=== PATIENT | female | born 1940 | race Two or more races ===

== ENCOUNTER 2025-03-03 01:41 | Inpatient (IN) | payer MEDICARE, MEDICAID ==
[~2025-03-03] VITALS: Ht 152.4 cm; Wt 58.6 kg
--- NOTE | 2025-03-03 02:44 | ED.PDOC ---
Altered Mental Status HPI Comments 84-year-old female who came to the ER via EMS for altered level of consciousness/shortness of breath. Patient does have history of hypertension, diabetes, CVA and dementia. Noted by family members that patient has been acting more altered than usual. Was noted that whenever patient is in supine position, patient appears to be short of breath, despite saturating 99% on room air and she is supine. 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 Allergies: Coded Allergies: NO KNOWN ALLERGIES (Unverified , 03/03/25) Information Source: Emergency Med Personnel Mode of Arrival: EMS Severity: Unable to Care for Self Timing: Hours Prehospital treatment: None Quality: Decreased Alertness, Change in Behavior History of: Dementia Past Medical History PAST MEDICAL HISTORY: CVA, Dementia, DM, High Lipids, HTN Surgical History: Pt Confused HYDROMETEOROLOGIST History: Denies all HYDROMETEOROLOGIST Hx, Pt Confused Family History Family History: Pt Confused Social History Smoker: Pt Confused Alcohol: Pt Confused Drugs: Pt Confused Lives In: Home Unable to Obtain due to: Altered Mental Status Physical Exam General Appearance: No Apparent Distress, Normal HEENT: Normal ENT Inspection, Pharynx Normal, TMs Normal Neck: Full Range of Motion, Non-Tender, Normal, Normal Inspection Respiratory: Chest Non-Tender, Lungs Clear, No Accessory Muscle Use, No Respiratory Distress, Normal Breath Sounds Cardiovascular: No Edema, No JVD, No Murmur, No Gallop, Normal Peripheral Pulses, Regular Rate/Rhythm Breast Exam: Deferred Gastrointestinal: No Organomegaly, Non Tender, No Pulsatile Mass, Normal Bowel Sounds, Soft Genitalia: Deferred Pelvic: Deferred Rectal: Deferred Extremities: No calf tenderness, Normal capillary refill, Normal inspection, Normal range of motion, Non-tender, No pedal edema Musculoskeletal : Apperance: Normal Neurologic: Alert, sales office coordinator II-XII nml as Tested, No Motor Deficits, Normal Affect, Normal Mood, No Sensory Deficits Cerebellar Function: Normal Reflexes: Normal Skin: Dry, Normal Color, Warm Lymphatic: No Adenopathy Was a procedure done? Was a procedure done?: No Differential Diagnosis (ALOC) Differential Diagnosis: Encephalopathy, Hypoxemia, Heart Failure, Renal Failure X-Ray, Labs, Meds, VS Vital Signs Date Time Temp Pulse Resp B/P (MAP) Pulse Ox O2 Delivery O2 Flow Rate FiO2 03/03/25 01:41 98.8 84 16 147/62 100 98.8 Lab Test 03/03/25 03:25 03/03/25 02:32 Range/Units Troponin I High Sensitivity Pending 4 </=34 ng/L White Blood Count 6.3 4.4-10.8 10^3/uL Red Blood Count 4.76 4.0-5.20 10^6/uL Hemoglobin 13.3 12.2-16.2 g/dL Hematocrit 39.9 36.0-46.0 % Mean Corpuscular Volume 83.8 80.0-100.0 fL Mean Corpuscular Hemoglobin 27.9 L 28.0-32.0 pg Mean Corpuscular Hemoglobin Concent 33.3 32.0-36.0 g/dL Red Cell Distribution Width 13.4 11.8-14.3 % Platelet Count 210 140-450 10^3/uL Mean Platelet Volume 8.6 6.9-10.8 fL Neutrophils (%) (Auto) 52.5 37.0-80.0 % Lymphocytes (%) (Auto) 37.0 10.0-50.0 % Monocytes (%) (Auto) 6.6 0.0-12.0 % Eosinophils (%) (Auto) 2.8 0.0-7.0 % Basophils (%) (Auto) 1.1 0.0-2.0 % Neutrophils # (Auto) 3.3 1.6-8.6 10 ^3/uL Lymphocytes # (Auto) 2.3 0.4-5.4 10 ^3/uL Monocytes # (Auto) 0.4 0-1.3 10 ^3/uL Eosinophils # (Auto) 0.2 0-0.8 10 ^3/uL Basophils # (Auto) 0.1 0-0.2 10 ^3/uL Nucleated Red Blood Cells 0.0 % Sodium Level 141 136-145 mmol/L Potassium Level 3.4 L 3.5-5.1 mmol/L Chloride Level 107 98-107 mmol/L Carbon Dioxide Level 20 20-31 mmol/L Anion Gap 14 5-15 Blood Urea Nitrogen 8 L 9-23 mg/dL Creatinine 0.74 0.550-1.02 mg/dL Glomerular Filtration Rate Calc 80 >90 mL/min BUN/Creatinine Ratio 10.8 10.0-20.0 Serum Glucose 156 H 74-106 mg/dL Lactic Acid Level 1.3 0.4-2.0 mmol/L Calcium Level 9.4 8.7-10.4 mg/dL Magnesium Level 1.8 1.6-2.6 mg/dL Total Bilirubin 0.9 0.2-1.0 mg/dL Aspartate Amino Transferase (AST) 17 13-40 U/L Alanine Aminotransferase (ALT) 12 7-40 U/L Alkaline Phosphatase 83 46-116 U/L B-Type Natriuretic Peptide 53.73 0-100 pg/mL Total Protein 7.8 5.7-8.2 g/dL Albumin 4.0 3.2-4.8 g/dL CHEST RADIOGRAPH Indication: SOB Technique: Single frontal view of the chest was obtained COMPARISON: None FINDINGS: Lines and Tubes: None Lungs: Clear Pleura: No effusion. No pneumothorax. Cardiomediastinal contours: Unremarkable Bones: Unremarkable IMPRESSION: 1. No acute disease. Time of 1ST Reevaluation: 02:39 Reevaluation 1ST: Unchanged Patient Education/Counseling: Pt Unresponsive Family Education/Counseling: No Family Present SEPSIS Sepsis Screen Physician Orders Chest Portable (03/03/25 02:12) Electrocardigram (03/03/25 02:12) Troponin-I Hs (03/03/25 03:12) Troponin-I Hs (03/03/25 05:12) Blood Culture (03/03/25 02:12) Vital Signs Date Time Temp Pulse Resp B/P (MAP) Pulse Ox O2 Delivery O2 Flow Rate FiO2 03/03/25 01:41 98.8 84 16 147/62 100 98.8 Laboratory Tests Test 03/03/25 02:32 Lactic Acid Level 1.3 mmol/L (0.4-2.0) White Blood Count 6.3 10^3/uL (4.4-10.8) Departure 1 Departure Time of Disposition: 04:06 Impression: Primary Impression: Dementia Additional Impression: Acute coronary syndrome Disposition: 09 ADMITTED INPATIENT Admit to: Tele Condition: Guarded Comments 84-year-old female with a history of dementia now with chest discomfort and sh ortness of breath. Initial cardiac workup looks okay but patient has significant risk factors. Patient was given an aspirin. Patient will need admission for supportive care and further workup. Critical Care Note Critical Care Time?: No Stability Stability form required: No Heart Score Heart Score: Heart Score Response (Comments) Value History N/A 0 EKG N/A 0 Age N/A 0 Risk Factors N/A 0 Troponin N/A 0 Total 0 I personally scribed for PRASANNA RICH MD ([email or web address]) on 03/03/25 at 02:44. El ectronically submitted by Atilio Viera ([facility]). I personally scribed for PRASANNA RICH MD ([email or web address]) on 03/03/25 at 03:02. Electronically submitted by Atilio Viera ([facility]). PRASANNA RICH MD Mar 03, 2025 02:44
[2025-03-03 02:46] LABS: Hematocrit 39.9 % (36.0-46.0); Hemoglobin 13.3 g/dL (12.2-16.2); Mean Corpuscular Hemoglobin 27.9 pg (28.0-32.0); Mean Corpuscular Volume 83.8 fL (80.0-100.0); Nucleated Red Blood Cells % 0.0 %
--- NOTE | 2025-03-03 02:50 | DVH ---
CHEST RADIOGRAPH Indication: SOB Technique: Single frontal view of the chest was obtained COMPARISON: None FINDINGS: Lines and Tubes: None Lungs: Clear Pleura: No effusion. No pneumothorax. Cardiomediastinal contours: Unremarkable Bones: Unremarkable IMPRESSION: 1. No acute disease.
[2025-03-03 03:11] LABS: Alanine Aminotransferase 12 U/L (7-40); Alkaline Phosphatase 83 U/L (46-116); Anion Gap 14 (5-15); BUN/Creatinine Ratio 10.8 (10.0-20.0); Calcium 9.4 mg/dL (8.7-10.4); Chloride 107 mmol/L (98-107); Magnesium 1.8 mg/dL (1.6-2.6); Sodium 141 mmol/L (136-145); Total Protein 7.8 g/dL (5.7-8.2)
[2025-03-03 03:12] LABS: Albumin 4.0 g/dL (3.2-4.8); Bilirubin, Total 0.9 mg/dL (0.2-1.0)
[2025-03-03 03:26] LABS: Blood Urea Nitrogen 8 mg/dL (9-23); Carbon Dioxide 20 mmol/L (20-31); Glucose 156 mg/dL (74-106); Potassium 3.4 mmol/L (3.5-5.1)
--- NOTE | 2025-03-03 04:42 | DVHHPRES ---
History of Present Illness Resident Creating Document: MARIBETH SULLIVAN RESIDENT History of Present Illness Diana Mane is a 84-year-old female patient who presents to ED brought by EMS due to altered mental status and difficulty breathing per granddaughter. Patient has history of dementia, obtained past medical history and history of presenrt illness from granddaughter who is at bedside. 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 Patient's symptoms persisted and worsened after her discharge at home, prompting family to call EMS and bring her to the hospital once again. Due to clinical status could not obtain review of systems. 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 Peptic ulcer disease. Surgical history: Cervical surgery Family history: Noncontributory Social history: Lives in [place] with family (next of kin is daughter and granddaughter). Denies current tobacco, alcohol and other drug abuse Allergies: Penicillin Home medication: [id number] mg p.o. daily, atorvastatin 80 mg p.o. daily, [id number] mg p.o. daily, glucagon1 mg SC prn, insulin glargine 14 units, insulin lispro 9 units, losartan hydrochlorothiazide 50-12.5 mg p.o. daily, metformin a 1000 mg p.o. b.i.d., Patient seen and examined at bedside. Currently has no new complaints. Patient will be admitted for further evaluation. Past Medical History Per HPI Past Surgical History Per HPI Family History Per HPI Past Social History Per HPI Review of Systems Review of Systems Per HPI Allergies: Coded Allergies: NO KNOWN ALLERGIES (Unverified , 03/03/25) Exam Vital Signs Vital Signs Date Time Temp Pulse Resp B/P (MAP) Pulse Ox O2 Delivery O2 Flow Rate FiO2 03/03/25 01:41 98.8 84 16 147/62 100 98.8 Exam Patient lying in bed, in no acute distress General: Campos, afebrile, mucosae are moist Cardiovascular: Normal S1 and S2. No murmurs, gallops or rubs Respiratory: Normal ventilation mechanics. Clear lung sounds on auscultation Abdomen: Soft, diffuse tenderness on superficial palpation, Colón's sign positive, suprapubic tenderness, no organomegaly, normal bowel sounds MSK/skin: Mobilizes 4 limbs. Skin is dry and warm Neurological: Oriented in 2 spheres (not in time). Left-sided hemiplegia (facial/brachial/crural), no other motor no sensitive deficits. Pupils are isocoric and reactive Labs/Xrays Labs Test 03/03/25 03:25 03/03/25 02:32 Range/Units Troponin I High Sensitivity 4 </=34 ng/L White Blood Count 6.3 4.4-10.8 10^3/uL Red Blood Count 4.76 4.0-5.20 10^6/uL Hemoglobin 13.3 12.2-16.2 g/dL Hematocrit 39.9 36.0-46.0 % Mean Corpuscular Volume 83.8 80.0-100.0 fL Mean Corpuscular Hemoglobin 27.9 L 28.0-32.0 pg Mean Corpuscular Hemoglobin Concent 33.3 32.0-36.0 g/dL Red Cell Distribution Width 13.4 11.8-14.3 % Platelet Count 210 140-450 10^3/uL Mean Platelet Volume 8.6 6.9-10.8 fL Neutrophils (%) (Auto) 52.5 37.0-80.0 % Lymphocytes (%) (Auto) 37.0 10.0-50.0 % Monocytes (%) (Auto) 6.6 0.0-12.0 % Eosinophils (%) (Auto) 2.8 0.0-7.0 % Basophils (%) (Auto) 1.1 0.0-2.0 % Neutrophils # (Auto) 3.3 1.6-8.6 10 ^3/uL Lymphocytes # (Auto) 2.3 0.4-5.4 10 ^3/uL Monocytes # (Auto) 0.4 0-1.3 10 ^3/uL Eosinophils # (Auto) 0.2 0-0.8 10 ^3/uL Basophils # (Auto) 0.1 0-0.2 10 ^3/uL Nucleated Red Blood Cells 0.0 % Sodium Level 141 136-145 mmol/L Potassium Level 3.4 L 3.5-5.1 mmol/L Chloride Level 107 98-107 mmol/L Carbon Dioxide Level 20 20-31 mmol/L Anion Gap 14 5-15 Blood Urea Nitrogen 8 L 9-23 mg/dL Creatinine 0.74 0.550-1.02 mg/dL Glomerular Filtration Rate Calc 80 >90 mL/min BUN/Creatinine Ratio 10.8 10.0-20.0 Serum Glucose 156 H 74-106 mg/dL Lactic Acid Level 1.3 0.4-2.0 mmol/L Calcium Level 9.4 8.7-10.4 mg/dL Magnesium Level 1.8 1.6-2.6 mg/dL Total Bilirubin 0.9 0.2-1.0 mg/dL Aspartate Amino Transferase (AST) 17 13-40 U/L Alanine Aminotransferase (ALT) 12 7-40 U/L Alkaline Phosphatase 83 46-116 U/L B-Type Natriuretic Peptide 53.73 0-100 pg/mL Total Protein 7.8 5.7-8.2 g/dL Albumin 4.0 3.2-4.8 g/dL SEPSIS Sepsis Screen Date sepsis recognized/suspect: Mar 03, 2025 Time Sepsis recognized/suspect: 0141 Recent Procedure: No On Antibiotic Therapy: No Respiratory Rate >20: No Heart Rate >90: No Temp<36 C (96.8 F) or >38.3 C: No SBP <90 or MAP <65 mmHG: No New Acute Mental Status Change: No Is the patient on CPAP, BIPAP,: No Physician Orders Chest Portable (03/03/25 02:12) Electrocardigram (03/03/25 02:12) Troponin-I Hs (03/03/25 05:12) Blood Culture (03/03/25 02:12) Admit (03/03/25 04:34) Code Status (03/03/25 04:34) Acetaminophen Tablet (Tylenol Tablet) (03/03/25 04:45) Npo (Nothing By Mouth) Diet (03/03/25 Breakfast) Echo 2d Mode Cardiac Dop (03/03/25 04:34) Lovenox 30mg (03/03/25 10:00) Morphine Sulfate Injection (03/03/25 04:45) Oxygen By Nasal Cannula (03/03/25 04:34) Stat Ekg For Chest Pain (03/03/25 04:34) Notify Of Changes From Base (03/03/25 04:34) Machine Load Clerk For 24 Hours (03/03/25 04:34) Emergency Dysrhythmia Protocol (03/03/25 04:34) Rhythm Strips Once Every Shift (03/03/25 04:34) Nitroglycerin Sublingual (Ntrostat Subli (03/03/25 04:45) Potassium Chl Bartolome Kcl (03/03/25 04:45) Magnesium Bartolome (03/03/25 04:45) Vitamin D, 25-Hydroxy (03/03/25 04:34) Vitamin B12 (03/03/25 04:34) Urinalysis (03/03/25 04:34) Thyroid Stimulating Hormone (03/03/25 04:34) Phosphorus (03/03/25 04:34) PTPTT (03/03/25 04:34) Lipid Panel (03/03/25 04:34) Hemoglobin A1c (03/03/25 04:34) Drug Screen (03/03/25 04:34) Complete Blood Count (03/03/25 04:34) Basic Metabolic Panel (03/03/25 04:34) Aspirin Tablet (03/03/25 10:00) Atorvastatin (Lipitor) (03/03/25 22:00) Urine Bacterial Culture (03/03/25 04:34) Head Without Contrast (03/03/25 04:34) Vital Signs Date Time Temp Pulse Resp B/P (MAP) Pulse Ox O2 Delivery O2 Flow Rate FiO2 03/03/25 01:41 98.8 84 16 147/62 100 98.8 Laboratory Tests Test 03/03/25 02:32 Lactic Acid Level 1.3 mmol/L (0.4-2.0) White Blood Count 6.3 10^3/uL (4.4-10.8) Assessment/Plan Assessment/Plan ASSESSMENT Metabolic encephalopathy secondary to sepsis Sepsis probably secondary to UTI Rule out dilated common bile duct Hypokalemia Diabetes Dyslipidemia Hypertension Dementia Peptic ulcer disease PLAN Patient will be admitted to telemetry. Ordered head, and abdomen and pelvis CT Continue home medication including aspirin, clopidogrel and atorvastatin. Currently on insulin sliding scale Indicated pantoprazole due to history of peptic ulcerative disease Keeping patient NPO Ordered swallow evaluation Ordered Vides catheter placement, obtain urine analysis Currently under empiric IV antibiotic (meropenem) Ordered radford cultures Goals of care discussed with granddaughter for over 18 minutes: Full code status Discussed plan with Dr. Granados, family (granddaughter) and nurses: Patient will be admitted due to metabolic encephalopathy probably secondary to UTI. Ordered pancultures, imaging (head and abdomen/pelvis CT). Patient has poor prognosis Plan discussed with: Patient, Other (Granddaughter and nurses) My Orders Orders - MARIBETH SULLIVAN RESIDENT Procedure Category Date Status Time Admit ADMIT 03/03/25 Transmitted 04:34 Code Status CODE 03/03/25 Transmitted 04:34 Acetaminophen Tablet PHA 03/03/25 Transmitted (Tylenol Tablet) 04:45 Npo (Nothing By DIET 03/03/25 Transmitted Mouth) Diet Breakfast Echo 2d Mode Cardiac US 03/03/25 Transmitted DOP 04:34 Lovenox 30mg PHA 03/03/25 Transmitted 10:00 Morphine Sulfate PHA 03/03/25 Transmitted Injection 04:45 Oxygen By Nasal RT 03/03/25 Transmitted Cannula 04:34 Stat Ekg For Chest [facility] 03/03/25 Transmitted Pain 04:34 Notify Md Of Changes [facility] 03/03/25 Transmitted From Base 04:34 Machine Load Clerk For [facility] 03/03/25 Transmitted 24 Hours 04:34 Emergency Dysrhythmia [facility] 03/03/25 Transmitted Protocol 04:34 Rhythm Strips Once [facility] 03/03/25 Transmitted Every Shift 04:34 Nitroglycerin PHA 03/03/25 Transmitted Sublingual (Ntrostat 04:45 Potassium Chl Bartolome PHA 03/03/25 Transmitted KCL 04:45 Magnesium Bartolome PHA 03/03/25 Transmitted 04:45 Vitamin D, 25-Hydroxy LAB 03/03/25 Transmitted 04:34 Vitamin B12 LAB 03/03/25 Transmitted 04:34 Urinalysis LAB 03/03/25 Transmitted 04:34 Thyroid Stimulating LAB 03/03/25 Transmitted Hormone 04:34 Phosphorus LAB 03/03/25 Transmitted 04:34 PTPTT LAB 03/03/25 Verified 04:34 Lipid Panel LAB 03/03/25 Verified 04:34 Hemoglobin A1c LAB 03/03/25 Verified 04:34 Drug Screen LAB 03/03/25 Verified 04:34 Complete Blood Count LAB 03/03/25 Verified 04:34 Basic Metabolic Panel LAB 03/03/25 Verified 04:34 Aspirin Tablet PHA 03/03/25 Verified 10:00 Atorvastatin (Lipitor) PHA 03/03/25 Verified 22:00 Urine Bacterial CHRISTINE 03/03/25 Transmitted Culture 04:[address] 03/03/25 Transmitted 04:34 Date of Service: Mar 03, 2025 Billing Provider: JASON GRANADOS MD Common Visit Codes: [id number] INP/OBS CARE (HIGH) Secondary Visit Codes: [id number] CARE PLAN 30 MINUTES MARIBETH SULLIVAN RESIDENT Mar 03, 2025 04:42
[2025-03-03] MEDS ORDERED: NITROGLYCERIN 0.4 MG SL TAB SL PRN (04:45)
[2025-03-03] MEDS ORDERED: MORPHINE SULFATE INJ 2 MG/ml SYRG IV PRN (04:45)
[2025-03-03] MEDS ORDERED: DEXTROSE (50%) 50ML SYRG IV PRN (05:15)
[2025-03-03 05:16] LABS: INR 1.03 (0.9-1.15); Partial Thromboplastin Time 28.4 SEC (24.5-34.5); Prothrombin Time 10.9 sec (9.3-11.8)
[2025-03-03] MEDS: MAGNESIUM SULFATE 1GM/100ML 100 ML IV SCH (05:45)
[2025-03-03] MEDS ORDERED: MEROPENEM 1GM IVPB 50 ML IV SCH (06:00)
--- NOTE | 2025-03-03 06:09 | DVH ---
EXAM: CT HEAD WITHOUT CONTRAST INDICATION: Metabolic encephalopathy TECHNIQUE: CT of the head without intravenous contrast. Radiation Dose Information: CT Dose: CTDI volume is 59.09 mGy. Dose-length product is 1.71 mGy*cm The dose indicators for CT are the volume Computed Tomography (CT) Dose Index (CTDIvol) and the Dose Length Product (DLP), and are measured in units of mGy and mGy-cm, respectively. These indicators are not patient dose, but values generated from the CT scanner acquisition factors. The report includes radiation exposure data for exposures received during this examination. COMPARISON: None FINDINGS: Evaluation of the posterior fossa is limited due to postsurgical changes. Coarse calcification in the left caudate. No evidence of intracranial hemorrhage or midline shift. There is hypodensity in the r ight parietotemporal lobe and right parietal lobe which may represent prior infarction. No evidence o f hydrocephalus. Mild cortical atrophy. IMPRESSION: 1. No acute intracranial process. 2. Hypodensity in the right parietotemporal lobe and right parietal lobe which may represent prior in farction, however there are no comparisons and given clinical history, consideration to other etiolog ies is given. MRI with contrast would be of benefit if there is no previous history of stroke.
--- NOTE | 2025-03-03 06:21 | DVH ---
Exam: CT CT AB PEL WO CON-NO ORAL OR IV History: Rule out dilated common bile duct Comparison Study: None TECHNIQUE: Multidetector CT of the abdomen and pelvis was performed from lung bases to pubic symphysi s. Imaging was performed without IV contrast. Axial, coronal and sagittal multiplanar reformats were obtained from the axial data set by the technologist. Radiation optimization: All CT scans at this facility use at least one of these dose optimization lora hniques: automated exposure control mA and/or kV adjustment per patient size (includes targeted exam s where dose is matched to clinical indication) or iterative reconstruction. Radiation Dose Information: CT Dose: CTDI volume is 11.07 mGy. Dose-length product is 3.92 mGy*cm FINDINGS: Evaluation of solid organs is limited due to lack of intravenous contrast use. Imaged portions of the lung bases demonstrate coarsened interstitial markings dependent changes. The re are coronary artery calcifications. Examination is limited by motion and lack of intravenous contrast. There is moderate pneumobilia. The common bile duct estimates 1.3 cm. A normal appearing gallbladder is not identified. There is possib le mass or duodenal diverticulum adjacent to the 2nd portion of the duodenum there is gas within the pancreatic duct. The pancreas spleen and adrenal glands appear otherwise unremarkable. The kidneys ap pear symmetric without hydronephrosis. There is no evidence of bowel obstruction or focal bowel wall thickening. There is a fat containing u mbilical hernia. The urinary bladder wall appears mildly thickened, likely due to incomplete distenti on. No suspicious osseous lesion. IMPRESSION: 1. Moderate pneumobilia with dilated common bile duct. Correlation with history of previous surgery o r ambulatory is recommended 2. Possible mass or duodenal diverticulum adjacent to the 2nd portion of the duodenum. CT or MRI with contrast pancreatic protocol is recommended.
[2025-03-03 06:56] LABS: Triglycerides 130.0 mg/dL (< 150)
[2025-03-03 06:58] LABS: Cholesterol 108.0 mg/dL (< 200)
[2025-03-03 07:38] LABS: HDL Cholesterol 38.0 mg/dL (40-59)
[2025-03-03] MEDS: InsuLIN REG 1unit/0.01ml Soln (100units/ml) SC SCH (08:55)
[2025-03-03] MEDS: ACCU-CHEK COMFORT CURVE STRIP VI SCH (08:56)
[2025-03-03] MEDS: MEROPENEM 1GM IVPB 50 ML IV SCH (09:06)
[2025-03-03] MEDS: POTASSIUM CHL 20MEQ/100ML 100 ML IV SCH (09:42)
[2025-03-03 09:46] LABS: COVID19 ANTIGEN SOFIA FIA NEGATIVE (NEGATIVE)
[2025-03-03] MEDS: SODIUM CHLORIDE 0.9% 1,000 ML IV SCH (10:00)
[2025-03-03] MEDS: HALOPERIDOL LACTATE 5 MG/ML INJ VIAL IV PRN (10:05)
[2025-03-03] MEDS: ENOXAPARIN SOD 30 MG/0.3 ML SYRINGE SC SCH (10:52)
[2025-03-03] MEDS: CLOPIDOGREL BISULFATE 75 MG TAB PO SCH (11:23)
[2025-03-03] MEDS: PANTOPRAZOLE 40 MG/10 ML VIAL INJ IV SCH (11:24)
[2025-03-03 12:22] LABS: Urine Protein, UAD Negative (Negative)
[2025-03-03 12:26] LABS: Amphetamine Screen, Urine Neg (NEGATIVE); Barbiturate Scree,Urine Neg (NEGATIVE); Benzodiazephine Screen, Urine Neg (NEGATIVE); Cannabinoid Screen, Urine Neg (NEGATIVE); Cocaine Screen, Urine Neg (NEGATIVE); Opiate Scree,Urine Neg (NEGATIVE); Phencyclidine Screen, Urine Neg (NEGATIVE)
--- NOTE | 2025-03-03 14:39 | DVHPN2 ---
Reviewed: Care Plan, H&P, Labs, Medications, Previous Orders, Radiology Changes from previous H/P or p: No Changes Objective Vitals Vital Signs Date Time Temp Pulse Resp B/P (MAP) Pulse Ox O2 Delivery O2 Flow Rate FiO2 03/03/25 14:21 83 16 137/72 (93) 96 03/03/25 12:00 98.5 98.5 Medications Current Medications Medications Dose Ordered Sig/Brianne Route Start Time Stop Time Status Last Admin Dose Admin Acetaminophen 325 mg Q4HP PRN PO 03/03/25 04:45 Morphine Sulfate 2 mg Q30M PRN IV 03/03/25 04:45 Nitroglycerin 0.4 mg Q5MINP PRN SL 03/03/25 04:45 Aspirin 81 mg DAILY PO 03/03/25 10:00 03/03/25 10:51 81 MG Atorvastatin Calcium 40 mg HS PO 03/03/25 22:00 Clopidogrel Bisulfate 75 mg DAILY PO 03/03/25 10:00 Diagnostic Test (Pha) 1 strip Q6HR 03/03/25 06:00 03/03/25 12:15 1 STRIP Insulin Human Regular Q6HR SC 03/03/25 06:00 Dextrose 50 ml UD PRN IV 03/03/25 05:15 Meropenem 50 ml @ 17 mls/hr Q8HR IV 03/03/25 06:00 UNV Pantoprazole Sodium 40 mg BID IV 03/03/25 10:00 03/03/25 11:24 40 MG Meropenem 50 ml @ 17 mls/hr Q12H IV 03/03/25 06:00 03/03/25 09:06 17 MLS/HR Haloperidol Lactate 2.5 mg Q8HP PRN IV 03/03/25 08:30 03/03/25 10:05 2.5 MG Sodium Chloride 1,000 ml @ 75 mls/hr [id number] IV 03/03/25 10:00 03/03/25 10:00 75 MLS/HR Enoxaparin Sodium 40 mg DAILY SC 03/04/25 10:00 Laboratory Results Laboratory Tests 03/03/25 02:32 Chemistry Test 03/03/25 02:32 Albumin 4.0 g/dL (3.2-4.8) Calcium Level 9.4 mg/dL (8.7-10.4) Magnesium Level 1.8 mg/dL (1.6-2.6) Phosphorus Level 3.0 mg/dL (2.4-5.1) Total Protein 7.8 g/dL (5.7-8.2) Coagulation Test 03/03/25 02:32 Prothrombin Time 10.9 sec (9.3-11.8) Prothrombin Time INR 1.03 (0.9-1.15) Activated Partial Thromboplast Time 28.4 SEC (24.5-34.5) Lipid panel Test 03/03/25 02:32 Cholesterol Level 108 mg/dL (< 200) HDL Cholesterol 38 mg/dL (40-59) L Triglycerides Level 130 mg/dL (< 150) Cardiac Markers Test 03/03/25 02:32 B-Type Natriuretic Peptide 53.73 pg/mL (0-100) LFT Test 03/03/25 02:32 Alanine Aminotransferase (ALT) 12 U/L (7-40) Alkaline Phosphatase 83 U/L (46-116) Aspartate Amino Transferase (AST) 17 U/L (13-40) Total Bilirubin 0.9 mg/dL (0.2-1.0) HgA1c, TSH Test 03/03/25 02:32 Hemoglobin A1c 11.0 % A1C (<5.7) H Thyroid Stimulating Hormone (TSH) 1.25 uIU/mL (0.55-4.78) Urinalysis Test 03/03/25 11:45 Urine Color Light-yellow (Yellow) Urine Clarity Clear (Clear) Urine pH 5.5 (5.0-9.0) Urine Specific [place] 1.013 (1.001-1.035) Urine Protein Negative (Negative) Urine Ketones 2+ (Negative) H Urine Blood Negative /uL (Negative) Urine Nitrite Negative (Negative) Urine Bilirubin Negative (Negative) Urine Urobilinogen Normal mg/dL (Negative) Urine Leukocyte Esterase 3+ /uL (Negative) Urine RBC 2 /hpf (0 - 4) Urine Microscopic WBC 8 /HPF (0-5) H Urine Squamous Epithelial Cells Few /hpf (<5) Urine Bacteria None seen /hpf (None Seen) Urine Mucus Few (None Seen) Urine Glucose Normal mg/dL (Normal) Labs and/or images reviewed: Labs reviewed by me, Image(s) reviewed by me Assessment/Plan Assessment/Plan Acute Metabolic encephalopathy secondary to sepsis Sepsis probably secondary to UTI Rule out dilated common bile duct: MRCP shows moderate pneumobilia with a dilated common bile duct possible mass 2nd portion of the duodenum, GI consult for Dr. Vazquez Hypokalemia Diabetes Dyslipidemia Hypertension Dementia Peptic ulcer disease History of stroke with left hemiplegia, discharged from [facility] on 02/22/25 Possible UTI treated at [facility] and discharged on 03/03/2025 Time Spent 70 minutes Advanced care planning time 20 minutes Patient is full code Plan discussed with: Patient My Orders Orders - KYM GOSS MD Procedure Category Date Status Time Sodium Chloride 0.9% PHA 03/03/25 In Process 10:00 Date of Service: Mar 03, 2025 Billing Provider: KYM GOSS MD Common Visit Codes: [id number] CARE 30-74 MIN KYM GOSS MD Mar 03, 2025 14:39
[2025-03-03] MEDS ORDERED: ASPI-543 PO (15:14)
[2025-03-03] MEDS ORDERED: ATOR10TA PO (15:14)
[2025-03-03] MEDS ORDERED: CLOP75TA70 PO (15:15)
[2025-03-03] MEDS ORDERED: LOSA100T33 PO (15:16)
[2025-03-03] MEDS ORDERED: METF-370 PO (15:17)
--- NOTE | 2025-03-03 15:27 | DVHSR ---
APPROVED REPORT EXAM: LIMITED Two-dimensional and M-mode echocardiogram with Doppler and color Doppler. Blood Pressure: 186/76 mmHg INDICATION CHF RISK FACTORS Height: 5', Weight: 119 DIMENSIONS LVDd4.3 (3.8-5.7cm)LA (2D)3.1 (1.9-4.0cm)Aortic Root2.9 (2.0-3.7cm) LVDs3.1 (2.5-4.0cm)LA (MM) (1.9-4.0cm)Aortic Cusp Exc1.7 (1.5-2.0cm) EF (%) 55.0 (55-70%)Rt. Atrium3.2 (1.9-4.0cm)Asc. Aorta cm IVSd0.9 (0.7-1.1cm)RV (D) (1.8-2.4cm) PWd0.9 (0.7-1.1cm) Mitral Valve MitralMitral Stenosis E wave0.50m/sMV Mean GR.mmHg A wave1.20m/sMV Peak GR.mmHg E/A ratio0.42D MVAcm2 Aortic Valve Aortic ValveAortic Stenosis V10.90m/Tello Mean GR.4mmHg V21.40m/Tello Peak GR.8mmHg LVOT Diameter2.1 (1.8-2.4cm)Doppler AVA2.23cm2 Other Information Quality : Technically LimitedRhythm : Technically limited study due to patient moving, patient ALOC. Conclusion Technically difficult study. Difficult acoustic windows Septal hypertrophy. Mild aortic root and left atrial enlargement. Valves are normal. EF of 60% with normal RV function. Dopplers unremarkable. No pericardial effusion masses or vegetations.
--- NOTE | 2025-03-03 16:31 | DVHINCON2 ---
Date of service: Mar 03, [address] Yang Reason for Consultation Possible mass in the 2nd portion of the duodenum History of Present Illness Presented to the emergency room with complaints of altered mental status and difficulty breathing Dementia with a stroke for which she was in [place] with left hemiplegia later she was also in [facility] a week ago recently admitted and discharged with the same type of stroke patient's symptoms persistent and worsened after the discharge apparently and hence she came to the hospital and got admitted. Patient has history of diabetes dyslipidemia hypertension dementia had a CT scan of the abdomen done here which showed there was evidence of moderate pneumobilia with dilated common bile duct history of previous surgery for gallbladder and possible duodenal mass or duodenal diverticulum in the 2nd portion of the duodenal MRI or a CT with contrast recommended CT was done without contrast Reason for the GI consult is possible duodenal mass or and a pneumobilia Past Medical History Diabetes hypertension dementia CVA Past Surgical History Gallbladder surgery cervical surgery Family History Noncontributory Social History Denies smoking or drinking Allergies: Coded Allergies: Penicillins (Verified Allergy, Intermediate, 03/03/25) Home Meds Reported Medications Metformin Hydrochloride (Metformin Hcl) 500 Mg Tab, 1000 MG PO DAILY for 30 Days, MG 03/03/25 Losartan Potassium & Hydrochlo (Losartan Potassium/Hydroc) 1 Tab Tab, 12.5 TAB PO DAILY, #30 TAB 5 Refills 03/03/25 Clopidogrel Bisulfate (CLOPIDOGREL) 75 Mg Tab, 75 MG PO DAILY for 30 Days, MG 03/03/25 Atorvastatin Calcium (Lipitor) 10 Mg Tab, 1 TAB PO DAILY, #30 TAB 5 Refills 03/03/25 Aspirin (Aspir-Low) 81 Mg Tab, 81 MG PO DAILY for 30 Days, MG 03/03/25 Current Medications Current Medications Medications (Trade) Dose Ordered Sig/Brianne Route PRN Reason Start Time Stop Time Status Last Admin Acetaminophen (Tylenol Tablet) 325 mg Q4HP PRN PO MILD PAIN (1-3 PAIN SCALE) 03/03/25 04:45 Enoxaparin Sodium (Lovenox) 30 mg DAILY SC 03/03/25 10:00 03/03/25 14:27 DC 03/03/25 10:52 Morphine Sulfate 2 mg Q30M PRN IV FOR CHEST PAIN 03/03/25 04:45 Nitroglycerin (Ntrostat Sublingual) 0.4 mg Q5MINP PRN SL FOR CHEST PAIN 03/03/25 04:45 Potassium Chloride 100 ml @ 50 mls/hr Q2H IV 03/03/25 04:45 03/03/25 08:44 DC 03/03/25 09:42 Magnesium Sulfate/ Dextrose 100 ml @ 100 mls/hr Q1H IV 03/03/25 04:45 03/03/25 06:44 DC 03/03/25 14:58 Aspirin 81 mg DAILY PO 03/03/25 10:00 03/03/25 10:51 Atorvastatin Calcium (Lipitor) 40 mg HS PO 03/03/25 22:00 Clopidogrel Bisulfate (Plavix) 75 mg DAILY PO 03/03/25 10:00 Diagnostic Test (Pha) (Accu-Chek Comfort Curve T) 1 strip Q6HR 03/03/25 06:00 03/03/25 12:15 Insulin Human Regular (InsuLIN R) Q6HR SC 03/03/25 06:00 Dextrose 50 ml UD PRN IV Blood Sugar LESS THAN 60 03/03/25 05:15 Meropenem 50 ml @ 17 mls/hr Q8HR IV 03/03/25 06:00 UNV Pantoprazole Sodium (Protonix) 40 mg BID IV 03/03/25 10:00 03/03/25 11:24 Meropenem 50 ml @ 17 mls/hr Q12H IV 03/03/25 06:00 03/03/25 09:06 Haloperidol Lactate (Haldol) 2.5 mg Q8HP PRN IV AGITATION 03/03/25 08:30 03/03/25 10:05 Sodium Chloride 1,000 ml @ 75 mls/hr [id number] IV 03/03/25 10:00 03/03/25 10:00 Enoxaparin Sodium (Lovenox) 40 mg DAILY SC 03/04/25 10:00 Review of Systems Noncontributory Vital Signs Vital Signs Date Time Temp Pulse Resp B/P (MAP) Pulse Ox O2 Delivery O2 Flow Rate FiO2 03/03/25 14:21 83 16 137/72 (93) 96 03/03/25 12:00 98.5 98.5 Physical Exam Slightly wasted poorly built female in no acute distress but demented and unresponsive probably from the stress No pallor no icterus Lungs clear Cardiovascular unremarkable Soft no tenderness no rigidity no mass Bowel sounds normal Extremities no edema Labs/Diagnostic Data Labs Test 03/03/25 11:45 03/03/25 08:15 03/03/25 06:15 03/03/25 02:32 Range/Units Urine Color Light-yellow Yellow Urine Clarity Clear Clear Urine pH 5.5 5.0-9.0 Urine Specific [place] 1.013 1.001-1.035 Urine Protein Negative Negative Urine Ketones 2+ H Negative Urine Blood Negative Negative /uL Urine Nitrite Negative Negative Urine Bilirubin Negative Negative Urine Urobilinogen Normal Negative mg/dL Urine Leukocyte Esterase 3+ Negative /uL Urine RBC 2 0 - 4 /hpf Urine Microscopic WBC 8 H 0-5 /HPF Urine Squamous Epithelial Cells Few <5 /hpf Urine Bacteria None seen None Seen /hpf Urine Mucus Few None Seen Urine Glucose Normal Normal mg/dL Urine Opiates Screen Neg NEGATIVE Urine Fentanyl Screen Neg NEGATIVE Urine Barbiturates Screen Neg NEGATIVE Urine Phencyclidine Screen Neg NEGATIVE Urine Amphetamines Screen Neg NEGATIVE Urine Benzodiazepines Screen Neg NEGATIVE Urine Cocaine Screen Neg NEGATIVE Urine Cannabinoids Screen Neg NEGATIVE Influenza Type A Antigen Negative Negative Influenza Type B Antigen Negative Negative SARS-CoV-2 Antigen (Rapid) Negative NEGATIVE Troponin I High Sensitivity 4 </=34 ng/L White Blood Count 6.3 4.4-10.8 10^3/uL Red Blood Count 4.76 4.0-5.20 10^6/uL Hemoglobin 13.3 12.2-16.2 g/dL Hematocrit 39.9 36.0-46.0 % Mean Corpuscular Volume 83.8 80.0-100.0 fL Mean Corpuscular Hemoglobin 27.9 L 28.0-32.0 pg Mean Corpuscular Hemoglobin Concent 33.3 32.0-36.0 g/dL Red Cell Distribution Width 13.4 11.8-14.3 % Platelet Count 210 140-450 10^3/uL Mean Platelet Volume 8.6 6.9-10.8 fL Neutrophils (%) (Auto) 52.5 37.0-80.0 % Lymphocytes (%) (Auto) 37.0 10.0-50.0 % Monocytes (%) (Auto) 6.6 0.0-12.0 % Eosinophils (%) (Auto) 2.8 0.0-7.0 % Basophils (%) (Auto) 1.1 0.0-2.0 % Neutrophils # (Auto) 3.3 1.6-8.6 10 ^3/uL Lymphocytes # (Auto) 2.3 0.4-5.4 10 ^3/uL Monocytes # (Auto) 0.4 0-1.3 10 ^3/uL Eosinophils # (Auto) 0.2 0-0.8 10 ^3/uL Basophils # (Auto) 0.1 0-0.2 10 ^3/uL Nucleated Red Blood Cells 0.0 % Prothrombin Time 10.9 9.3-11.8 sec Prothrombin Time INR 1.03 0.9-1.15 Activated Partial Thromboplast Time 28.4 24.5-34.5 SEC Sodium Level 141 136-145 mmol/L Potassium Level 3.4 L 3.5-5.1 mmol/L Chloride Level 107 98-107 mmol/L Carbon Dioxide Level 20 20-31 mmol/L Anion Gap 14 5-15 Blood Urea Nitrogen 8 L 9-23 mg/dL Creatinine 0.74 0.550-1.02 mg/dL Glomerular Filtration Rate Calc 80 >90 mL/min BUN/Creatinine Ratio 10.8 10.0-20.0 Serum Glucose 156 H 74-106 mg/dL Hemoglobin A1c 11.0 H <5.7 % A1C Lactic Acid Level 1.3 0.4-2.0 mmol/L Calcium Level 9.4 8.7-10.4 mg/dL Phosphorus Level 3.0 2.4-5.1 mg/dL Magnesium Level 1.8 1.6-2.6 mg/dL Total Bilirubin 0.9 0.2-1.0 mg/dL Aspartate Amino Transferase (AST) 17 13-40 U/L Alanine Aminotransferase (ALT) 12 7-40 U/L Alkaline Phosphatase 83 46-116 U/L B-Type Natriuretic Peptide 53.73 0-100 pg/mL Total Protein 7.8 5.7-8.2 g/dL Albumin 4.0 3.2-4.8 g/dL Triglycerides Level 130 < 150 mg/dL Cholesterol Level 108 < 200 mg/dL LDL Cholesterol 52 < 100 mg/dL HDL Cholesterol 38 L 40-59 mg/dL Thyroid Stimulating Hormone (TSH) 1.25 0.55-4.78 uIU/mL Assessment 84-year-old female with complaints of with a history of stroke history of hemiplegia patient has also demented patient was recently admitted in [facility] with worsening dementia and stroke was recently discharged with prep apparently the symptoms worsened and she was brought to the emergency room patient has restarted gallbladder surgery peptic ulcer disease patient had a CT scan done which showed possible duodenal mass versus and duodenal diverticulum or ampullary mass as well as dilated common bile duct with moderate pneumobilia. Patient has history of gallbladder surgery of the details are not available. Clinical impression is a patient with a history of stroke or clopidogrel Has abnormal CT scan showing possible duodenal mass as well as pneumobilia Plan/Recommendation We will recommend MRI MRCP patient is status post cholecystectomy Liver enzymes are normal patient is status post cholecystectomy Depending upon the MRI results some an MRCP results way need further intervention including endoscopic evaluation patient is on clopidogrel which may have to be stopped before the endoscopy can be considered if necessary Her overall prognosis is guarded Thank you Dr. Hu Plan discussed with: Patient AGUS HU MD Mar 03, 2025 16:31
[2025-03-03 19:30] VITALS: RESP 20; O2SAT 98
[2025-03-03] MEDS: ATORVASTATIN 20 MG TAB PO SCH (22:00)
[2025-03-04] VITALS (7 sets, daily range): BP systolic 139–182; BP diastolic 66–91; PULSE 68–93; RESP 17–18; TEMP 97.7–98.9; O2SAT 94–98
[2025-03-04] MEDS: ENOXAPARIN SOD 40 MG/0.4 ML SYRINGE SC SCH (10:12)
--- NOTE | 2025-03-04 11:55 | DVHPN2 ---
Reviewed: Care Plan, H&P, Labs, Medications, Previous Orders, Radiology Changes from previous H/P or p: No Changes Objective Vitals Vital Signs Date Time Temp Pulse Resp B/P (MAP) Pulse Ox O2 Delivery O2 Flow Rate FiO2 03/04/25 05:00 97.8 84 18 146/66 (92) 97 97.8 03/04/25 01:29 Room Air* 0 21 Intake/Output Intake and Output 03/04/25 07:00 Intake Total 425 ml Output Total 900 ml Balance -475 ml Intake Oral 0 ml IV Total 425 ml Output Urine Total 900 ml Medications Current Medications Medications Dose Ordered Sig/Brianne Route Start Time Stop Time Status Last Admin Dose Admin Acetaminophen 325 mg Q4HP PRN PO 03/03/25 04:45 Morphine Sulfate 2 mg Q30M PRN IV 03/03/25 04:45 Nitroglycerin 0.4 mg Q5MINP PRN SL 03/03/25 04:45 Atorvastatin Calcium 40 mg HS PO 03/03/25 22:00 Diagnostic Test (Pha) 1 strip Q6HR 03/03/25 06:00 03/04/25 05:53 1 STRIP Insulin Human Regular Q6HR SC 03/03/25 06:00 03/04/25 00:16 2 UNITS Dextrose 50 ml UD PRN IV 03/03/25 05:15 Meropenem 50 ml @ 17 mls/hr Q8HR IV 03/03/25 06:00 UNV Pantoprazole Sodium 40 mg BID IV 03/03/25 10:00 03/04/25 10:12 40 MG Meropenem 50 ml @ 17 mls/hr Q12H IV 03/03/25 06:00 03/04/25 05:53 17 MLS/HR Haloperidol Lactate 2.5 mg Q8HP PRN IV 03/03/25 08:30 03/03/25 10:05 2.5 MG Sodium Chloride 1,000 ml @ 75 mls/hr [id number] IV 03/03/25 10:00 03/04/25 00:17 75 MLS/HR Laboratory Results Laboratory Tests 03/03/25 02:32 Urinalysis Test 03/03/25 11:45 Urine Color Light-yellow (Yellow) Urine Clarity Clear (Clear) Urine pH 5.5 (5.0-9.0) Urine Specific [place] 1.013 (1.001-1.035) Urine Protein Negative (Negative) Urine Ketones 2+ (Negative) H Urine Blood Negative /uL (Negative) Urine Nitrite Negative (Negative) Urine Bilirubin Negative (Negative) Urine Urobilinogen Normal mg/dL (Negative) Urine Leukocyte Esterase 3+ /uL (Negative) Urine RBC 2 /hpf (0 - 4) Urine Microscopic WBC 8 /HPF (0-5) H Urine Squamous Epithelial Cells Few /hpf (<5) Urine Bacteria None seen /hpf (None Seen) Urine Mucus Few (None Seen) Urine Glucose Normal mg/dL (Normal) Microbiology Microbiology Date/Time Source Procedure Growth Status 03/03/25 11:45 Voided Urine Urine Culture - Preliminary Resulted 03/03/25 02:35 Blood Blood Culture - Preliminary NO GROWTH AFTER 24 HOURS OF INCUBATION. Resulted Labs and/or images reviewed: Labs reviewed by me, Image(s) reviewed by me Assessment/Plan Assessment/Plan Acute Metabolic encephalopathy secondary to sepsis Sepsis probably secondary to UTI Rule out dilated common bile duct: CT abdomen pelvis without contrast shows moderate pneumobilia with a dilated common bile duct possible mass 2nd portion of the duodenum, GI consult for Dr. Vazquez appreciated , ordered MRCP Hypokalemia Diabetes Dyslipidemia Hypertension Dementia Peptic ulcer disease Recent cholecystectomy History of stroke with left hemiplegia, discharged from [place] on 02/22/25 Possible UTI treated at [facility] and discharged on 03/03/2025 Time Spent 70 minutes Advanced care planning time 20 minutes Patient is full code Gand Daughter Yarely [phone] at bedside Hold aspirin Plavix and Lovenox in anticipation of possible endoscopy Plan discussed with: Patient My Orders Orders - KYM GOSS MD Procedure Category Date Status Time * Gi [facility] Physical Therapy Coordinator CONS 03/03/25 Transmitted 14:39 Date of Service: Mar 04, 2025 Billing Provider: KYM GOSS MD Common Visit Codes: [id number] INP/OBS CARE(HIGH) KYM GOSS MD Mar 04, 2025 11:55
--- NOTE | 2025-03-04 18:12 | DVH ---
MRI MRCP W/O IV CONTRAST HISTORY: Possible duodenal mass COMPARISON: CT previous day TECHNIQUE: Multiplanar multisequence MR imaging of the abdomen was performed without IV contrast. 3D MRCP images were created and reviewed. PROCEDURE: Multiplanar multisequence MRI images were obtained of the abdomen without intravenous cont rast Additional MIPS were obtained of the biliary system. FINDINGS: The lower chest is unremarkable. The liver is unremarkable. Cholecystectomy.. There is moderate intrahepatic and extrahepatic biliary ductal dilatation. The common bile duct measures 14.5 mm. There is no choledocholithiasis or mass lesion. 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 The pancreas and pancreatic duct are unremarkable. The spleen, adrenal glands, and kidneys are unremarkable. Abdominal aortic dimensions are normal. The bone marrow signal is unremarkable. IMPRESSION: Cholecystectomy Moderate intrahepatic and extrahepatic biliary ductal dilatation with CBD measuring 14.5 mm. No choledocholithiasis or mass lesion. A biliary stricture is not entirely excluded. 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
[2025-03-04] MEDS: ACETAMINOPHEN 325 MG TAB PO PRN (21:23)
--- NOTE | 2025-03-04 21:39 | DVHPN2 ---
Progress Note - Dictate Date Seen: Mar 04, 2025 Medical Necessity Reason Pt with a Central, PICC or Fol: No Subjective With encephalopathy probably from sepsis MRCP showed dilated bile ducts and a large duodenal diverticulum Liver functions are normal vital signs Vital Sign Date Time Temp Pulse Resp B/P (MAP) Pulse Ox O2 Delivery O2 Flow Rate FiO2 03/04/25 21:00 98.5 74 17 182/91 (121) 98 98.5 03/04/25 01:29 Room Air* 0 21 Total Intake and Output 03/03/25 03/03/25 03/04/25 15:00 23:00 07:00 Intake Total 225 ml 200 ml 0 ml Output Total 900 ml Balance 225 ml 200 ml -900 ml medications Current Medications Medications Dose Ordered Sig/Brianne Route Start Time Stop Time Status Last Admin Dose Admin Acetaminophen 325 mg Q4HP PRN PO 03/03/25 04:45 03/04/25 21:23 325 MG Morphine Sulfate 2 mg Q30M PRN IV 03/03/25 04:45 Nitroglycerin 0.4 mg Q5MINP PRN SL 03/03/25 04:45 Atorvastatin Calcium 40 mg HS PO 03/03/25 22:00 03/04/25 21:23 40 MG Diagnostic Test (Pha) 1 strip Q6HR 03/03/25 06:00 03/04/25 18:00 1 STRIP Insulin Human Regular Q6HR SC 03/03/25 06:00 03/04/25 12:06 2 UNITS Dextrose 50 ml UD PRN IV 03/03/25 05:15 Meropenem 50 ml @ 17 mls/hr Q8HR IV 03/03/25 06:00 UNV Pantoprazole Sodium 40 mg BID IV 03/03/25 10:00 03/04/25 21:23 40 MG Meropenem 50 ml @ 17 mls/hr Q12H IV 03/03/25 06:00 03/04/25 18:00 17 MLS/HR Haloperidol Lactate 2.5 mg Q8HP PRN IV 03/03/25 08:30 03/03/25 10:05 2.5 MG Sodium Chloride 1,000 ml @ 75 mls/hr [id number] IV 03/03/25 10:00 03/04/25 00:17 75 MLS/HR objective Abdomen is soft no tenderness no rigidity no guarding laboratory and microbiology Laboratory Tests 03/03/25 02:32 Test 03/03/25 02:32 Range/Units Serum Glucose 156 H 74-106 mg/dL Assessment/Plan 84-year-old female with complaints of with a history of stroke history of hemiplegia patient has also demented patient was recently admitted in [facility] with worsening dementia and stroke was recently discharged with prep apparently the symptoms worsened and she was brought to the emergency room patient has restarted gallbladder surgery peptic ulcer disease patient had a CT scan done which showed possible duodenal mass versus and duodenal diverticulum or ampullary mass as well as dilated common bile duct with moderate pneumobilia. Patient has history of gallbladder surgery of the details are not available. Clinical impression is a patient with a history of stroke or clopidogrel Has abnormal CT scan showing possible duodenal mass as well as pneumobilia MRCP showed bile ducts no masses large duodenal diverticulum Possibilities are possible common bile duct is in the diverticulum and getting sludge with food particles etc. getting into the common bile duct and getting infections Properly need an ERCP electively when off anticoagulants In the meanwhile for the liver enzymes continue with the antibiotics treatment and see Her overall prognosis with her age and multiple problems is guarded Thank you Dr. Vazquez Plan discussed with: Patient AGUS VAZQUEZ MD Mar 04, 2025 21:39
[2025-03-05] VITALS (8 sets, daily range): BP systolic 134–166; BP diastolic 70–86; PULSE 73–102; RESP 17–20; TEMP 97.9–99.9; O2SAT 96–100
[2025-03-05] MEDS: hydrALAZINE HCL 20 MG/ML VL IV ONE (00:59)
--- NOTE | 2025-03-05 12:26 | DVHPN2 ---
Reviewed: Care Plan, H&P, Labs, Medications, Previous Orders, Radiology Changes from previous H/P or p: No Changes Objective Vitals Vital Signs Date Time Temp Pulse Resp B/P (MAP) Pulse Ox O2 Delivery O2 Flow Rate FiO2 03/05/25 10:47 97.9 102 20 134/79 (97) 99 97.9 03/05/25 08:00 Room Air* 0 21 Intake/Output Intake and Output 03/05/25 07:00 Intake Total 100 ml Output Total 1250 ml Balance -1150 ml Intake Oral 0 ml IV Total 100 ml Output Urine Total 1250 ml Medications Current Medications Medications Dose Ordered Sig/Brianne Route Start Time Stop Time Status Last Admin Dose Admin Acetaminophen 325 mg Q4HP PRN PO 03/03/25 04:45 03/04/25 21:23 325 MG Morphine Sulfate 2 mg Q30M PRN IV 03/03/25 04:45 Nitroglycerin 0.4 mg Q5MINP PRN SL 03/03/25 04:45 Atorvastatin Calcium 40 mg HS PO 03/03/25 22:00 03/04/25 21:23 40 MG Diagnostic Test (Pha) 1 strip Q6HR 03/03/25 06:00 03/05/25 11:54 1 STRIP Insulin Human Regular Q6HR SC 03/03/25 06:00 03/04/25 12:06 2 UNITS Dextrose 50 ml UD PRN IV 03/03/25 05:15 Meropenem 50 ml @ 17 mls/hr Q8HR IV 03/03/25 06:00 UNV Pantoprazole Sodium 40 mg BID IV 03/03/25 10:00 03/05/25 09:31 40 MG Meropenem 50 ml @ 17 mls/hr Q12H IV 03/03/25 06:00 03/05/25 05:10 17 MLS/HR Haloperidol Lactate 2.5 mg Q8HP PRN IV 03/03/25 08:30 03/03/25 10:05 2.5 MG Sodium Chloride 1,000 ml @ 75 mls/hr [id number] IV 03/03/25 10:00 03/04/25 00:17 75 MLS/HR Laboratory Results Laboratory Tests 03/03/25 02:32 Urinalysis Test 03/03/25 11:45 Urine Color Light-yellow (Yellow) Urine Clarity Clear (Clear) Urine pH 5.5 (5.0-9.0) Urine Specific [place] 1.013 (1.001-1.035) Urine Protein Negative (Negative) Urine Ketones 2+ (Negative) H Urine Blood Negative /uL (Negative) Urine Nitrite Negative (Negative) Urine Bilirubin Negative (Negative) Urine Urobilinogen Normal mg/dL (Negative) Urine Leukocyte Esterase 3+ /uL (Negative) Urine RBC 2 /hpf (0 - 4) Urine Microscopic WBC 8 /HPF (0-5) H Urine Squamous Epithelial Cells Few /hpf (<5) Urine Bacteria None seen /hpf (None Seen) Urine Mucus Few (None Seen) Urine Glucose Normal mg/dL (Normal) Microbiology Microbiology Date/Time Source Procedure Growth Status 03/03/25 11:45 Voided Urine Urine Culture - Preliminary Resulted 03/03/25 02:35 Blood Blood Culture - Preliminary NO GROWTH AFTER 48 HOURS OF INCUBATION. Resulted Labs and/or images reviewed: Labs reviewed by me, Image(s) reviewed by me Assessment/Plan Assessment/Plan Acute Metabolic encephalopathy secondary to sepsis Sepsis probably secondary to UTI, blood cultures negative urine cultures negative Rule out dilated common bile duct: CT abdomen pelvis without contrast shows moderate pneumobilia with a dilated common bile duct possible mass 2nd portion of the duodenum, GI consult for Dr. Vazquez appreciated , MRCP shows: Moderate intrahepatic and extrahepatic biliary ductal dilatation with CBD measuring 14.5 mm. No choledocholithiasis or mass lesion. A biliary stricture is not entirely excluded. 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 Hypokalemia Diabetes Dyslipidemia Hypertension Dementia Peptic ulcer disease Recent cholecystectomy History of stroke with left hemiplegia, discharged from [place] on 02/22/25 Possible UTI treated at [facility] and discharged on 03/03/2025 Time Spent 70 minutes Advanced care planning time 20 minutes Patient is full code Gand Daughter Yarely [phone] at bedside Hold aspirin Plavix and Lovenox in anticipation of possible endoscopy Daughter at the bedside explained to her about the MRCP test result and await further plan by the GI RN Adeola is the outreach rep Plan discussed with: Patient Date of Service: Mar 05, 2025 Billing Provider: KYM GOSS MD Common Visit Codes: [id number] CARE 30-74 MIN KYM GOSS MD Mar 05, 2025 12:26
--- NOTE | 2025-03-05 14:19 | DVHPN2 ---
Subjective Patient status post MRCP which showed dilated bile ducts, with liver functions normal Patient also having difficulty swallowing is only able to eat small bites at a time swallow evaluation is pending. Symptoms of dysphagia started after stroke 02/22/2025 Reviewed: Care Plan, H&P, Labs, Medications, Previous Orders, Radiology Changes from previous H/P or p: No Changes Objective Vitals Vital Signs Date Time Temp Pulse Resp B/P (MAP) Pulse Ox O2 Delivery O2 Flow Rate FiO2 03/05/25 13:00 98.6 95 18 152/79 (103) 100 98.6 03/05/25 08:00 Room Air* 0 21 Intake/Output Intake and Output 03/05/25 07:00 Intake Total 100 ml Output Total 1250 ml Balance -1150 ml Intake Oral 0 ml IV Total 100 ml Output Urine Total 1250 ml Exam Abdomen is soft no tenderness no rigidity no guarding Medications Current Medications Medications Dose Ordered Sig/Brianne Route Start Time Stop Time Status Last Admin Dose Admin Acetaminophen 325 mg Q4HP PRN PO 03/03/25 04:45 03/04/25 21:23 325 MG Morphine Sulfate 2 mg Q30M PRN IV 03/03/25 04:45 Nitroglycerin 0.4 mg Q5MINP PRN SL 03/03/25 04:45 Atorvastatin Calcium 40 mg HS PO 03/03/25 22:00 03/04/25 21:23 40 MG Diagnostic Test (Pha) 1 strip Q6HR 03/03/25 06:00 03/05/25 11:54 1 STRIP Insulin Human Regular Q6HR SC 03/03/25 06:00 03/04/25 12:06 2 UNITS Dextrose 50 ml UD PRN IV 03/03/25 05:15 Meropenem 50 ml @ 17 mls/hr Q8HR IV 03/03/25 06:00 UNV Pantoprazole Sodium 40 mg BID IV 03/03/25 10:00 03/05/25 09:31 40 MG Meropenem 50 ml @ 17 mls/hr Q12H IV 03/03/25 06:00 03/05/25 05:10 17 MLS/HR Haloperidol Lactate 2.5 mg Q8HP PRN IV 03/03/25 08:30 03/03/25 10:05 2.5 MG Sodium Chloride 1,000 ml @ 75 mls/hr [id number] IV 03/03/25 10:00 03/04/25 00:17 75 MLS/HR Laboratory Results Laboratory Tests 03/03/25 02:32 Urinalysis Test 03/03/25 11:45 Urine Color Light-yellow (Yellow) Urine Clarity Clear (Clear) Urine pH 5.5 (5.0-9.0) Urine Specific [place] 1.013 (1.001-1.035) Urine Protein Negative (Negative) Urine Ketones 2+ (Negative) H Urine Blood Negative /uL (Negative) Urine Nitrite Negative (Negative) Urine Bilirubin Negative (Negative) Urine Urobilinogen Normal mg/dL (Negative) Urine Leukocyte Esterase 3+ /uL (Negative) Urine RBC 2 /hpf (0 - 4) Urine Microscopic WBC 8 /HPF (0-5) H Urine Squamous Epithelial Cells Few /hpf (<5) Urine Bacteria None seen /hpf (None Seen) Urine Mucus Few (None Seen) Urine Glucose Normal mg/dL (Normal) Microbiology Microbiology Date/Time Source Procedure Growth Status 03/03/25 11:45 Voided Urine Urine Culture - Final Complete 03/03/25 02:35 Blood Blood Culture - Preliminary NO GROWTH AFTER 48 HOURS OF INCUBATION. Resulted Assessment/Plan Assessment/Plan Dysphagia status post CVA Dilated bile duct Abnormal CT results possible mass versus duodenal diverticulum Plan Discussed with Dr. Mitchell Swallow evaluation pending Soft diet recommended Possible higher level of care if patient needs ERCP We will continue to monitor patient Plan discussed with: Patient, Daughter, Other (RN) Date of Service: Mar 05, 2025 Billing Provider: HEMAL GOSS Common Visit Codes: [id number] INP/OBS CARE(HIGH) HEMAL GOSS Mar 05, 2025 14:19
[2025-03-06] VITALS (8 sets, daily range): BP systolic 102–195; BP diastolic 53–90; PULSE 57–79; RESP 16–18; TEMP 97.7–98.5; O2SAT 96–100
--- NOTE | 2025-03-06 10:08 | DVHPN2 ---
Reviewed: Care Plan, H&P, Labs, Medications, Previous Orders, Radiology Changes from previous H/P or p: No Changes Objective Vitals Vital Signs Date Time Temp Pulse Resp B/P (MAP) Pulse Ox O2 Delivery O2 Flow Rate FiO2 03/06/25 08:54 98.5 69 17 160/84 (109) 98 98.5 03/05/25 20:00 Room Air* 0 21 Intake/Output Intake and Output 03/06/25 07:00 Intake Total 580 ml Output Total 650 ml Balance -70 ml Intake Oral 530 ml IV Total 50 ml Output Urine Total 650 ml # Bowel Movements 2 Medications Current Medications Medications Dose Ordered Sig/Brianne Route Start Time Stop Time Status Last Admin Dose Admin Acetaminophen 325 mg Q4HP PRN PO 03/03/25 04:45 03/04/25 21:23 325 MG Morphine Sulfate 2 mg Q30M PRN IV 03/03/25 04:45 Nitroglycerin 0.4 mg Q5MINP PRN SL 03/03/25 04:45 Atorvastatin Calcium 40 mg HS PO 03/03/25 22:00 03/05/25 22:09 40 MG Diagnostic Test (Pha) 1 strip Q6HR 03/03/25 06:00 03/06/25 05:52 1 STRIP Insulin Human Regular Q6HR SC 03/03/25 06:00 03/06/25 05:52 4 UNITS Dextrose 50 ml UD PRN IV 03/03/25 05:15 Meropenem 50 ml @ 17 mls/hr Q8HR IV 03/03/25 06:00 UNV Pantoprazole Sodium 40 mg BID IV 03/03/25 10:00 03/06/25 08:43 40 MG Meropenem 50 ml @ 17 mls/hr Q12H IV 03/03/25 06:00 03/06/25 05:16 17 MLS/HR Haloperidol Lactate 2.5 mg Q8HP PRN IV 03/03/25 08:30 03/03/25 10:05 2.5 MG Sodium Chloride 1,000 ml @ 75 mls/hr [id number] IV 03/03/25 10:00 03/06/25 04:40 75 MLS/HR Laboratory Results Laboratory Tests 03/03/25 02:32 Urinalysis Test 03/03/25 11:45 Urine Color Light-yellow (Yellow) Urine Clarity Clear (Clear) Urine pH 5.5 (5.0-9.0) Urine Specific [place] 1.013 (1.001-1.035) Urine Protein Negative (Negative) Urine Ketones 2+ (Negative) H Urine Blood Negative /uL (Negative) Urine Nitrite Negative (Negative) Urine Bilirubin Negative (Negative) Urine Urobilinogen Normal mg/dL (Negative) Urine Leukocyte Esterase 3+ /uL (Negative) Urine RBC 2 /hpf (0 - 4) Urine Microscopic WBC 8 /HPF (0-5) H Urine Squamous Epithelial Cells Few /hpf (<5) Urine Bacteria None seen /hpf (None Seen) Urine Mucus Few (None Seen) Urine Glucose Normal mg/dL (Normal) Microbiology Microbiology Date/Time Source Procedure Growth Status 03/03/25 11:45 Voided Urine Urine Culture - Final Complete 03/03/25 02:35 Blood Blood Culture - Preliminary NO GROWTH AFTER 72 HOURS OF INCUBATION. Resulted Labs and/or images reviewed: Labs reviewed by me, Image(s) reviewed by me Assessment/Plan Assessment/Plan Acute Metabolic encephalopathy secondary to sepsis Sepsis probably secondary to UTI, blood cultures negative urine cultures negative continue Meropenem Dilated common bile duct: CT abdomen pelvis without contrast shows moderate pneumobilia with a dilated common bile duct possible mass 2nd portion of the duodenum, GI consult for Dr. Vazquez appreciated , MRCP shows: Moderate intrahepatic and extrahepatic biliary ductal dilatation with CBD measuring 14.5 mm. No choledocholithiasis or mass lesion. A biliary stricture is not entirely excluded. 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 Acute Hypokalemia Diabetes Dyslipidemia Hypertension Dementia Peptic ulcer disease Recent cholecystectomy History of stroke with left hemiplegia, discharged from [place] on 02/22/25 Possible UTI treated at [facility] and discharged on 03/03/2025 Time Spent 66 minutes Advanced care planning time 20 minutes Patient is full code Hold aspirin Plavix and Lovenox in anticipation of possible endoscopy Daughter at the bedside explained to her about the MRCP test result and await further plan by the GI Plan discussed with: Patient My Orders Orders - KYM GOSS MD Procedure Category Date Status Time Mechanical Soft Diet DIET 03/05/25 Transmitted Lunch Date of Service: Mar 06, 2025 Billing Provider: KYM GOSS MD Common Visit Codes: [id number] CARE 30-74 MIN KYM GOSS MD Mar 06, 2025 10:08
--- NOTE | 2025-03-06 15:05 | DVHPN2 ---
Progress Note - Dictate Date Seen: Mar 06, 2025 Medical Necessity Reason Pt with a Central, PICC or Fol: No Subjective No new complaints Patient is resting comfortably She is tolerating a clear liquid diet like water vital signs Vital Sign Date Time Temp Pulse Resp B/P (MAP) Pulse Ox O2 Delivery O2 Flow Rate FiO2 03/06/25 12:30 98.0 79 18 168/88 (114) 96 98.0 03/06/25 08:00 Room Air* 0 21 Total Intake and Output 03/05/25 03/05/25 03/06/25 15:00 23:00 07:00 Intake Total 50 ml 230 ml 300 ml Output Total 450 ml 200 ml Balance 50 ml -220 ml 100 ml medications Current Medications Medications Dose Ordered Sig/Brianne Route Start Time Stop Time Status Last Admin Dose Admin Acetaminophen 325 mg Q4HP PRN PO 03/03/25 04:45 03/04/25 21:23 325 MG Morphine Sulfate 2 mg Q30M PRN IV 03/03/25 04:45 Nitroglycerin 0.4 mg Q5MINP PRN SL 03/03/25 04:45 Atorvastatin Calcium 40 mg HS PO 03/03/25 22:00 03/05/25 22:09 40 MG Diagnostic Test (Pha) 1 strip Q6HR 03/03/25 06:00 03/06/25 11:27 1 STRIP Insulin Human Regular Q6HR SC 03/03/25 06:00 03/06/25 11:27 3 UNITS Dextrose 50 ml UD PRN IV 03/03/25 05:15 Meropenem 50 ml @ 17 mls/hr Q8HR IV 03/03/25 06:00 UNV Pantoprazole Sodium 40 mg BID IV 03/03/25 10:00 03/06/25 08:43 40 MG Meropenem 50 ml @ 17 mls/hr Q12H IV 03/03/25 06:00 03/06/25 05:16 17 MLS/HR Haloperidol Lactate 2.5 mg Q8HP PRN IV 03/03/25 08:30 03/03/25 10:05 2.5 MG Sodium Chloride 1,000 ml @ 75 mls/hr [id number] IV 03/03/25 10:00 03/06/25 04:40 75 MLS/HR Clonidine HCl 0.2 mg Q6HP PRN PO 03/06/25 11:45 03/06/25 12:18 0.2 MG objective Abdomen is soft no tenderness no rigidity no guarding laboratory and microbiology Laboratory Tests 03/03/25 02:32 Test 03/03/25 02:32 Range/Units Serum Glucose 156 H 74-106 mg/dL Problems(with codes): (1) Duodenal diverticulum (2) Common bile duct dilation (3) Acute coronary syndrome (4) Dementia Prognosis Plan Patient's biliary ductal dilation could be related to the duodenal diverticulum causing extrinsic compression on the CBD or ampulla There was no evidence of a mass in the MRCP and her liver enzymes are normal I do not believe the patient needs any urgent ERCP at this time Continue supportive care, advance diet as tolerated and discharge planning as per hospitalist Dietary Evaluation Review Comments: Nutrition Recommendation 1) Ensure Enlive 240ml BID 2) Consider CCHO 60gm + cardiac msoft diet 3) Monitor PO intake, lab values, weight trend, and I/O Expected Outcomes/Goals: Intake to meet >75% estimated needs Lab values to improve Fu 3-5 days Plan discussed with: Patient, Daughter, Other (Dr Yang) MELANIA SAWANT MD Mar 06, 2025 15:05
[2025-03-06] MEDS: SODIUM CHLORIDE 0.9% 1,000 ML IV ONE (15:37)
[2025-03-07 08:00] VITALS: PULSE 71; PULSE 73; RESP 16; O2SAT 95
[2025-03-07] MEDS: Ensure Enlive Strawberry 8oz Bottle PO SCH (08:00)
--- NOTE | 2025-03-07 08:07 | ECG ---
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
--- NOTE | 2025-03-07 08:07 | ECG ---
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
[2025-03-07 08:38] VITALS: BP 157/86; PULSE 71; RESP 16; TEMP 97.6; O2SAT 95
--- NOTE | 2025-03-07 10:53 | DVHPN2 ---
Reviewed: Care Plan, H&P, Labs, Medications, Previous Orders, Radiology Changes from previous H/P or p: No Changes Objective Vitals Vital Signs Date Time Temp Pulse Resp B/P (MAP) Pulse Ox O2 Delivery O2 Flow Rate FiO2 03/07/25 08:38 97.6 71 16 157/86 (109) 95 97.6 03/06/25 20:00 Room Air* 0 21 Intake/Output Intake and Output 03/07/25 07:00 Intake Total 850 ml Output Total 950 ml Balance -100 ml Intake Oral 800 ml IV Total 50 ml Output Urine Total 950 ml Medications Current Medications Medications Dose Ordered Sig/Brianne Route Start Time Stop Time Status Last Admin Dose Admin Acetaminophen 325 mg Q4HP PRN PO 03/03/25 04:45 03/04/25 21:23 325 MG Morphine Sulfate 2 mg Q30M PRN IV 03/03/25 04:45 Nitroglycerin 0.4 mg Q5MINP PRN SL 03/03/25 04:45 Atorvastatin Calcium 40 mg HS PO 03/03/25 22:00 03/05/25 22:09 40 MG Diagnostic Test (Pha) 1 strip Q6HR 03/03/25 06:00 03/07/25 00:03 1 STRIP Insulin Human Regular Q6HR SC 03/03/25 06:00 03/06/25 23:57 2 UNITS Dextrose 50 ml UD PRN IV 03/03/25 05:15 Meropenem 50 ml @ 17 mls/hr Q8HR IV 03/03/25 06:00 UNV Pantoprazole Sodium 40 mg BID IV 03/03/25 10:00 03/07/25 09:18 40 MG Meropenem 50 ml @ 17 mls/hr Q12H IV 03/03/25 06:00 03/07/25 09:18 17 MLS/HR Haloperidol Lactate 2.5 mg Q8HP PRN IV 03/03/25 08:30 03/03/25 10:05 2.5 MG Sodium Chloride 1,000 ml @ 75 mls/hr [id number] IV 03/03/25 10:00 03/07/25 06:35 75 MLS/HR Clonidine HCl 0.2 mg Q6HP PRN PO 03/06/25 11:45 03/06/25 12:18 0.2 MG Enteral Nutritional Formula 240 ml TIDWM PO 03/07/25 08:00 03/07/25 08:00 240 ML Laboratory Results Laboratory Tests 03/03/25 02:32 Urinalysis Test 03/03/25 11:45 Urine Color Light-yellow (Yellow) Urine Clarity Clear (Clear) Urine pH 5.5 (5.0-9.0) Urine Specific [place] 1.013 (1.001-1.035) Urine Protein Negative (Negative) Urine Ketones 2+ (Negative) H Urine Blood Negative /uL (Negative) Urine Nitrite Negative (Negative) Urine Bilirubin Negative (Negative) Urine Urobilinogen Normal mg/dL (Negative) Urine Leukocyte Esterase 3+ /uL (Negative) Urine RBC 2 /hpf (0 - 4) Urine Microscopic WBC 8 /HPF (0-5) H Urine Squamous Epithelial Cells Few /hpf (<5) Urine Bacteria None seen /hpf (None Seen) Urine Mucus Few (None Seen) Urine Glucose Normal mg/dL (Normal) Microbiology Microbiology Date/Time Source Procedure Growth Status 03/03/25 11:45 Voided Urine Urine Culture - Final Complete 03/03/25 02:35 Blood Blood Culture - Preliminary NO GROWTH AFTER 72 HOURS OF INCUBATION. Resulted Labs and/or images reviewed: Labs reviewed by me, Image(s) reviewed by me Assessment/Plan Assessment/Plan Acute Metabolic encephalopathy secondary to sepsis Sepsis probably secondary to UTI, blood cultures negative urine cultures negative continue Meropenem Dilated common bile duct: CT abdomen pelvis without contrast shows moderate pneumobilia with a dilated common bile duct possible mass 2nd portion of the duodenum, GI consult for Dr. Vazquez appreciated , MRCP shows: Moderate intrahepatic and extrahepatic biliary ductal dilatation with CBD measuring 14.[address] Delilah Mitchell advised: "Patient's biliary ductal dilation could be related to the duodenal diverticulum causing extrinsic compression on the CBD or ampulla There was no evidence of a mass in the MRCP and her liver enzymes are normal" No choledocholithiasis or mass lesion. A biliary stricture is not entirely excluded. 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 Acute Hypokalemia Diabetes Dyslipidemia Hypertension Dementia Peptic ulcer disease Recent cholecystectomy History of stroke with left hemiplegia, discharged from [place] on 02/22/25 Possible UTI treated at [facility] and discharged on 03/03/2025 Will DC to group home facility Tuesday for meropenem 500 mg IV q.8 hours for two weeks for complicated UTI Plan discussed with: Patient My Orders Orders - KYM GOSS MD Procedure Category Date Status Time Clonidine Hcl Tablet PHA 03/06/25 In Process (Catapres Tablet) 11:45 Date of Service: Mar 07, 2025 Billing Provider: KYM GOSS MD Common Visit Codes: [id number] INP/OBS CARE(HIGH) KYM GOSS MD Mar 07, 2025 10:53
[2025-03-07 12:52] VITALS: BP 145/77; PULSE 65; RESP 16; O2SAT 97
[2025-03-07] MEDS ORDERED: HALOPERIDOL LACTATE 5 MG/ML INJ VIAL IM PRN (15:45)
[2025-03-07 16:55] VITALS: BP 138/77; PULSE 77; RESP 16; TEMP 98.6; O2SAT 100
[2025-03-07 20:00] VITALS: PULSE 69; PULSE 87; RESP 16; O2SAT 94
[2025-03-07 21:00] VITALS: BP 147/63; PULSE 81; RESP 15; TEMP 96.6; O2SAT 94
--- NOTE | 2025-03-07 21:00 | DVHPN2 ---
Progress Note - Dictate Date Seen: Mar 07, 2025 Medical Necessity Reason Pt with a Central, PICC or Fol: No Subjective No new complaints Patient is resting comfortably Patient is moving her bowels No nausea vomiting or abdominal pain Last liver panel was normal vital signs Vital Sign Date Time Temp Pulse Resp B/P (MAP) Pulse Ox O2 Delivery O2 Flow Rate FiO2 03/07/25 16:55 98.6 77 16 138/77 (97) 100 98.6 03/07/25 08:00 Room Air* 0 21 Total Intake and Output 03/06/25 03/06/25 03/07/25 15:00 23:00 07:00 Intake Total 50 ml 600 ml 200 ml Output Total 350 ml 600 ml Balance 50 ml 250 ml -400 ml medications Current Medications Medications Dose Ordered Sig/Brianne Route Start Time Stop Time Status Last Admin Dose Admin Acetaminophen 325 mg Q4HP PRN PO 03/03/25 04:45 03/04/25 21:23 325 MG Morphine Sulfate 2 mg Q30M PRN IV 03/03/25 04:45 Nitroglycerin 0.4 mg Q5MINP PRN SL 03/03/25 04:45 Atorvastatin Calcium 40 mg HS PO 03/03/25 22:00 03/05/25 22:09 40 MG Diagnostic Test (Pha) 1 strip Q6HR 03/03/25 06:00 03/07/25 17:19 1 STRIP Insulin Human Regular Q6HR SC 03/03/25 06:00 03/07/25 17:20 3 UNITS Dextrose 50 ml UD PRN IV 03/03/25 05:15 Meropenem 50 ml @ 17 mls/hr Q8HR IV 03/03/25 06:00 UNV Pantoprazole Sodium 40 mg BID IV 03/03/25 10:00 03/07/25 09:18 40 MG Meropenem 50 ml @ 17 mls/hr Q12H IV 03/03/25 06:00 03/07/25 17:20 17 MLS/HR Sodium Chloride 1,000 ml @ 75 mls/hr [id number] IV 03/03/25 10:00 03/07/25 06:35 75 MLS/HR Enteral Nutritional Formula 240 ml TIDWM PO 03/07/25 08:00 03/07/25 18:27 240 ML Clonidine HCl 0.1 mg Q6HP PRN PO 03/07/25 10:45 Haloperidol Lactate 2.5 mg Q8HP PRN IM 03/07/25 15:45 objective Abdomen is soft no tenderness no rigidity no guarding laboratory and microbiology Laboratory Tests 03/03/25 02:32 Test 03/03/25 02:32 Range/Units Serum Glucose 156 H 74-106 mg/dL Problems(with codes): (1) UTI (urinary tract infection) (2) Common bile duct dilation (3) Duodenal diverticulum (4) Acute coronary syndrome (5) Dementia Prognosis PLAN Patient's biliary ductal dilation could be related to the duodenal diverticulum causing extrinsic compression on the CBD There was no evidence of a mass in the MRCP and her liver enzymes are normal No choledocholithiasis or mass lesion. History of stroke with left hemiplegia, discharged from [place] on 02/22/25 Possible UTI treated at [facility] and discharged on 03/03/2025 Patient had a midline placed and possible discharge planning to SNF for IV meropenem for two weeks Dietary Evaluation Review Comments: Nutrition Recommendation 1) Ensure Enlive 240ml BID 2) Consider CCHO 60gm + cardiac msoft diet 3) Monitor PO intake, lab values, weight trend, and I/O Expected Outcomes/Goals: Intake to meet >75% estimated needs Lab values to improve Fu 3-5 days Plan discussed with: Patient, Other (Dr Harman Yang) MELANIA SAWANT MD Mar 07, 2025 21:00
[2025-03-08 01:00] VITALS: BP 173/68; PULSE 65; RESP 15; TEMP 97.1; O2SAT 98
[2025-03-08 05:00] VITALS: BP 152/84; PULSE 65; RESP 16; TEMP 97.9; O2SAT 99
[2025-03-08 06:15] LABS: Hematocrit 35.5 % (36.0-46.0); Hemoglobin 11.9 g/dL (12.2-16.2); Mean Corpuscular Hemoglobin 27.8 pg (28.0-32.0); Mean Corpuscular Volume 82.9 fL (80.0-100.0); Nucleated Red Blood Cells % 0.1 %
[2025-03-08 06:28] LABS: Alanine Aminotransferase 11 U/L (7-40); Albumin 3.3 g/dL (3.2-4.8); Alkaline Phosphatase 74 U/L (46-116); Anion Gap 12 (5-15); BUN/Creatinine Ratio 18.2 (10.0-20.0); Blood Urea Nitrogen 12 mg/dL (9-23); Calcium 8.9 mg/dL (8.7-10.4); Carbon Dioxide 27 mmol/L (20-31); Chloride 104 mmol/L (98-107); Sodium 143 mmol/L (136-145); Total Protein 6.6 g/dL (5.7-8.2)
[2025-03-08 06:29] LABS: Bilirubin, Total 0.6 mg/dL (0.2-1.0)
[2025-03-08 06:30] LABS: Glucose 138 mg/dL (74-106); Potassium 2.8 mmol/L (3.5-5.1)
[2025-03-08 08:00] VITALS: PULSE 65; PULSE 68; RESP 16; O2SAT 95
[2025-03-08 09:00] VITALS: BP 150/86; PULSE 68; RESP 16; TEMP 97.7; O2SAT 100
--- NOTE | 2025-03-08 09:54 | DVHPN2 ---
Reviewed: Care Plan, H&P, Labs, Medications, Previous Orders, Radiology Changes from previous H/P or p: No Changes Objective Vitals Vital Signs Date Time Temp Pulse Resp B/P (MAP) Pulse Ox O2 Delivery O2 Flow Rate FiO2 03/08/25 09:00 97.7 68 16 150/86 (107) 100 97.7 03/07/25 20:00 Room Air* 0 21 Intake/Output Intake and Output 03/08/25 07:00 Intake Total 930 ml Output Total 1050 ml Balance -120 ml Intake Oral 880 ml IV Total 50 ml Output Urine Total 1050 ml # Bowel Movements 1 Medications Current Medications Medications Dose Ordered Sig/Brianne Route Start Time Stop Time Status Last Admin Dose Admin Acetaminophen 325 mg Q4HP PRN PO 03/03/25 04:45 03/04/25 21:23 325 MG Morphine Sulfate 2 mg Q30M PRN IV 03/03/25 04:45 Nitroglycerin 0.4 mg Q5MINP PRN SL 03/03/25 04:45 Atorvastatin Calcium 40 mg HS PO 03/03/25 22:00 03/05/25 22:09 40 MG Diagnostic Test (Pha) 1 strip Q6HR 03/03/25 06:00 03/08/25 06:00 1 STRIP Insulin Human Regular Q6HR SC 03/03/25 06:00 03/07/25 17:20 3 UNITS Dextrose 50 ml UD PRN IV 03/03/25 05:15 Meropenem 50 ml @ 17 mls/hr Q8HR IV 03/03/25 06:00 UNV Pantoprazole Sodium 40 mg BID IV 03/03/25 10:00 03/08/25 08:57 40 MG Meropenem 50 ml @ 17 mls/hr Q12H IV 03/03/25 06:00 03/08/25 06:27 17 MLS/HR Sodium Chloride 1,000 ml @ 75 mls/hr [id number] IV 03/03/25 10:00 03/07/25 06:35 75 MLS/HR Enteral Nutritional Formula 240 ml TIDWM PO 03/07/25 08:00 03/08/25 08:00 240 ML Clonidine HCl 0.1 mg Q6HP PRN PO 03/07/25 10:45 Haloperidol Lactate 2.5 mg Q8HP PRN IM 03/07/25 15:45 Laboratory Results Laboratory Tests 03/08/25 05:46 Chemistry Test 03/08/25 05:46 Albumin 3.3 g/dL (3.2-4.8) Calcium Level 8.9 mg/dL (8.7-10.4) Total Protein 6.6 g/dL (5.7-8.2) LFT Test 03/08/25 05:46 Alanine Aminotransferase (ALT) 11 U/L (7-40) Alkaline Phosphatase 74 U/L (46-116) Aspartate Amino Transferase (AST) 21 U/L (13-40) Total Bilirubin 0.6 mg/dL (0.2-1.0) Urinalysis Test 03/03/25 11:45 Urine Color Light-yellow (Yellow) Urine Clarity Clear (Clear) Urine pH 5.5 (5.0-9.0) Urine Specific [place] 1.013 (1.001-1.035) Urine Protein Negative (Negative) Urine Ketones 2+ (Negative) H Urine Blood Negative /uL (Negative) Urine Nitrite Negative (Negative) Urine Bilirubin Negative (Negative) Urine Urobilinogen Normal mg/dL (Negative) Urine Leukocyte Esterase 3+ /uL (Negative) Urine RBC 2 /hpf (0 - 4) Urine Microscopic WBC 8 /HPF (0-5) H Urine Squamous Epithelial Cells Few /hpf (<5) Urine Bacteria None seen /hpf (None Seen) Urine Mucus Few (None Seen) Urine Glucose Normal mg/dL (Normal) Microbiology Microbiology Date/Time Source Procedure Growth Status 03/03/25 11:45 Voided Urine Urine Culture - Final Complete 03/03/25 02:35 Blood Blood Culture - Final NO GROWTH AFTER 5 DAYS OF INCUBATION. Complete Labs and/or images reviewed: Labs reviewed by me, Image(s) reviewed by me Assessment/Plan Assessment/Plan Acute Metabolic encephalopathy secondary to sepsis Sepsis probably secondary to UTI, blood cultures negative urine cultures negative continue Meropenem Dilated common bile duct: CT abdomen pelvis without contrast shows moderate pneumobilia with a dilated common bile duct possible mass 2nd portion of the duodenum, GI consult for Dr. Vazquez appreciated , MRCP shows: Moderate intrahepatic and extrahepatic biliary ductal dilatation with CBD measuring 14.[address] Delilah Mitchell advised: "Patient's biliary ductal dilation could be related to the duodenal diverticulum causing extrinsic compression on the CBD or ampulla There was no evidence of a mass in the MRCP and her liver enzymes are normal" No choledocholithiasis or mass lesion. A biliary stricture is not entirely excluded. 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 Acute Hypokalemia Diabetes Dyslipidemia Hypertension Dementia Peptic ulcer disease Recent cholecystectomy History of stroke with left hemiplegia, discharged from [facility] on 02/22/25 Possible UTI treated at [facility] and discharged on 03/03/2025 Will [facility] facility Tuesday for meropenem 500 mg IV q.8 hours for two weeks for complicated UTI PLAN IS ACCEPTABLE Plan is acceptable to the daughter Stella [phone] who is at the bedside Plan discussed with: Patient My Orders Orders - KYM GOSS MD Procedure Category Date Status Time Insert Midline ORDERS 03/07/25 Transmitted 10:38 Clonidine Hcl Tablet PHA 03/07/25 In Process (Catapres Tablet) 10:45 Haloperidol Lactate PHA 03/07/25 In Process Injection (Haldol) 15:45 Date of Service: Mar 08, 2025 Billing Provider: KYM GOSS MD Common Visit Codes: [id number] INP/OBS CARE(HIGH) KYM GOSS MD Mar 08, 2025 09:54
--- NOTE | 2025-03-08 09:58 | DVHDS2 ---
Discharge Summary Date of Admission Mar 03, 2025 at 04:34 Date of Discharge: Mar 08, 2025 Admitting Diagnosis Altered mental status and confusion Wounds: None Labs/Diagnostic Data: Laboratory Results Test 03/08/25 06:37 03/08/25 05:46 03/03/25 11:45 03/03/25 08:15 POC Glucose 138 mg/dl (70-106) White Blood Count 5.9 10^3/uL (4.4-10.8) Red Blood Count 4.29 10^6/uL (4.0-5.20) Hemoglobin 11.9 g/dL (12.2-16.2) Hematocrit 35.5 % (36.0-46.0) Mean Corpuscular Volume 82.9 fL (80.0-100.0) Mean Corpuscular Hemoglobin 27.8 pg (28.0-32.0) Mean Corpuscular Hemoglobin Concent 33.5 g/dL (32.0-36.0) Red Cell Distribution Width 13.2 % (11.8-14.3) Platelet Count 198 10^3/uL (140-450) Mean Platelet Volume 8.7 fL (6.9-10.8) Neutrophils (%) (Auto) 57.1 % (37.0-80.0) Lymphocytes (%) (Auto) 31.1 % (10.0-50.0) Monocytes (%) (Auto) 6.3 % (0.0-12.0) Eosinophils (%) (Auto) 4.1 % (0.0-7.0) Basophils (%) (Auto) 1.4 % (0.0-2.0) Neutrophils # (Auto) 3.4 10 ^3/uL (1.6-8.6) Lymphocytes # (Auto) 1.8 10 ^3/uL (0.4-5.4) Monocytes # (Auto) 0.4 10 ^3/uL (0-1.3) Eosinophils # (Auto) 0.2 10 ^3/uL (0-0.8) Basophils # (Auto) 0.1 10 ^3/uL (0-0.2) Nucleated Red Blood Cells 0.1 % Sodium Level 143 mmol/L (136-145) Potassium Level 2.8 mmol/L (3.5-5.1) Chloride Level 104 mmol/L (98-107) Carbon Dioxide Level 27 mmol/L (20-31) Anion Gap 12 (5-15) Blood Urea Nitrogen 12 mg/dL (9-23) Creatinine 0.66 mg/dL (0.550-1.02) Glomerular Filtration Rate Calc 87 mL/min (>90) BUN/Creatinine Ratio 18.2 (10.0-20.0) Serum Glucose 138 mg/dL (74-106) Calcium Level 8.9 mg/dL (8.7-10.4) Total Bilirubin 0.6 mg/dL (0.2-1.0) Aspartate Amino Transferase (AST) 21 U/L (13-40) Alanine Aminotransferase (ALT) 11 U/L (7-40) Alkaline Phosphatase 74 U/L (46-116) Total Protein 6.6 g/dL (5.7-8.2) Albumin 3.3 g/dL (3.2-4.8) Urine Color Light-yellow (Yellow) Urine Clarity Clear (Clear) Urine pH 5.5 (5.0-9.0) Urine Specific [place] 1.013 (1.001-1.035) Urine Protein Negative (Negative) Urine Ketones 2+ (Negative) Urine Blood Negative /uL (Negative) Urine Nitrite Negative (Negative) Urine Bilirubin Negative (Negative) Urine Urobilinogen Normal mg/dL (Negative) Urine Leukocyte Esterase 3+ /uL (Negative) Urine RBC 2 /hpf (0 - 4) Urine Microscopic WBC 8 /HPF (0-5) Urine Squamous Epithelial Cells Few /hpf (<5) Urine Bacteria None seen /hpf (None Seen) Urine Mucus Few (None Seen) Urine Glucose Normal mg/dL (Normal) Urine Opiates Screen Neg (NEGATIVE) Urine Fentanyl Screen Neg (NEGATIVE) Urine Barbiturates Screen Neg (NEGATIVE) Urine Phencyclidine Screen Neg (NEGATIVE) Urine Amphetamines Screen Neg (NEGATIVE) Urine Benzodiazepines Screen Neg (NEGATIVE) Urine Cocaine Screen Neg (NEGATIVE) Urine Cannabinoids Screen Neg (NEGATIVE) Influenza Type A Antigen Negative (Negative) Influenza Type B Antigen Negative (Negative) SARS-CoV-2 Antigen (Rapid) Negative (NEGATIVE) Test 03/03/25 06:15 03/03/25 02:32 Troponin I High Sensitivity 4 ng/L (</=34) Prothrombin Time 10.9 sec (9.3-11.8) Prothrombin Time INR 1.03 (0.9-1.15) Activated Partial Thromboplast Time 28.4 SEC (24.5-34.5) Hemoglobin A1c 11.0 % A1C (<5.7) Lactic Acid Level 1.3 mmol/L (0.4-2.0) Phosphorus Level 3.0 mg/dL (2.4-5.1) Magnesium Level 1.8 mg/dL (1.6-2.6) B-Type Natriuretic Peptide 53.73 pg/mL (0-100) Triglycerides Level 130 mg/dL (< 150) Cholesterol Level 108 mg/dL (< 200) LDL Cholesterol 52 mg/dL (< 100) HDL Cholesterol 38 mg/dL (40-59) Vitamin B12 Level 617 pg/mL (211-911) Vitamin D 25-Hydroxy 27.0 ng/mL (30.0-100) Thyroid Stimulating Hormone (TSH) 1.25 uIU/mL (0.55-4.78) Other Laboratory Tests 03/08/25 05:46 Brief Hx & Hospital Course: 84-year-old female with a history of hypertension hypercholesterolemia dementia peptic ulcer disease recent stroke 02/22/2025 treated at [facility] recent UTI treated at [facility] and discharged home on p.o. antibiotics burden by family for altered mental status and confusion found to have sepsis secondary to urinary tract infection treated with a meropenem 500 mg IV q.8 hours blood cultures came negative urine cultures also came negative but patient showed improvement with the IV antibiotics she also had mild abdominal pain and nausea. CT head negative CT abdomen pelvis showed CBD dilatation MRCP CBD dilatation and duodenal diverticulum. GI Dr. Delilah Mitchell was consulted and felt the CBD dilatation is because of the diverticulum. Patient received physical therapy. Being discharged to senior care facility for receiving two weeks of IV meropenem for complicated UTI Physical therapy for the stroke. Daughter Stella at the bedside and plan is acceptable to her. Consults/Reason for consult GI Dr. 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 Medications: Meropenem 500 mg IV q.8 hours for two weeks See list for other meds Scheduled Aspirin (Aspir-Low), 81 MG PO DAILY, (Reported) Atorvastatin Calcium (Lipitor), 1 TAB PO DAILY, (Reported) Clopidogrel Bisulfate (Clopidogrel), 75 MG PO DAILY, (Reported) Losartan Potassium & Hydrochlo (Losartan Potassium/Hydroc), 12.5 TAB PO DAILY, (Reported) Metformin Hydrochloride (Metformin Hcl), 1,000 MG PO DAILY, (Reported) 50 (Time taken for discharge summary 50 minutes) Discharge Statement: "Patient was advised to return to the ER or call 911 if any headaches, dizziness, shortness of breath, chest pain, abdominal pain, bleeding, fevers, or worsening of medical condition. Patient was counseled about treatment plan, medications, possible side effects, patientverbalized understanding. All questions were answered to the best of my ability. 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
[2025-03-08] MEDS: POTASSIUM EFFERVESENT TAB 25 MEQ PO ONE (10:19)
[2025-03-08 13:00] VITALS: BP 158/87; PULSE 80; RESP 16; TEMP 98; O2SAT 96
--- NOTE | 2025-03-08 15:01 | DVHPN2 ---
Progress Note - Dictate Date Seen: Mar 08, 2025 Medical Necessity Reason Pt with a Central, PICC or Fol: No Subjective No new complaints Patient is resting comfortably Patient is moving her bowels No nausea vomiting or abdominal pain Last liver panel was normal vital signs Vital Sign Date Time Temp Pulse Resp B/P (MAP) Pulse Ox O2 Delivery O2 Flow Rate FiO2 03/08/25 09:00 97.7 68 16 150/86 (107) 100 97.7 03/08/25 08:00 Room Air* 0 21 Total Intake and Output 03/07/25 03/07/25 03/08/25 15:00 23:00 07:00 Intake Total 50 ml 400 ml 480 ml Output Total 500 ml 550 ml Balance 50 ml -100 ml -70 ml medications Current Medications Medications Dose Ordered Sig/Brianne Route Start Time Stop Time Status Last Admin Dose Admin Acetaminophen 325 mg Q4HP PRN PO 03/03/25 04:45 03/04/25 21:23 325 MG Morphine Sulfate 2 mg Q30M PRN IV 03/03/25 04:45 Nitroglycerin 0.4 mg Q5MINP PRN SL 03/03/25 04:45 Atorvastatin Calcium 40 mg HS PO 03/03/25 22:00 03/05/25 22:09 40 MG Diagnostic Test (Pha) 1 strip Q6HR 03/03/25 06:00 03/08/25 11:31 1 STRIP Insulin Human Regular Q6HR SC 03/03/25 06:00 03/08/25 11:31 4 UNITS Dextrose 50 ml UD PRN IV 03/03/25 05:15 Meropenem 50 ml @ 17 mls/hr Q8HR IV 03/03/25 06:00 UNV Pantoprazole Sodium 40 mg BID IV 03/03/25 10:00 03/08/25 08:57 40 MG Meropenem 50 ml @ 17 mls/hr Q12H IV 03/03/25 06:00 03/08/25 06:27 17 MLS/HR Sodium Chloride 1,000 ml @ 75 mls/hr [id number] IV 03/03/25 10:00 03/07/25 06:35 75 MLS/HR Enteral Nutritional Formula 240 ml TIDWM PO 03/07/25 08:00 03/08/25 12:00 240 ML Clonidine HCl 0.1 mg Q6HP PRN PO 03/07/25 10:45 Haloperidol Lactate 2.5 mg Q8HP PRN IM 03/07/25 15:45 objective Abdomen is soft no tenderness no rigidity no guarding laboratory and microbiology Laboratory Tests 03/08/25 05:46 Test 03/08/25 05:46 Range/Units Serum Glucose 138 H 74-106 mg/dL Problems(with codes): (1) UTI (urinary tract infection) (2) Common bile duct dilation (3) Duodenal diverticulum (4) Dementia Prognosis PLAN Patient's biliary ductal dilation could be related to the duodenal diverticulum causing extrinsic compression on the CBD There was no evidence of a mass in the MRCP and her liver enzymes are normal No choledocholithiasis or mass lesion. History of stroke with left hemiplegia, discharged from [facility] on 02/22/25 Possible UTI treated at [facility] and discharged on 03/03/2025 Patient had a midline placed and possible discharge planning to SNF for IV meropenem for two weeks Dietary Evaluation Review Comments: Nutrition Recommendation 1) Ensure Enlive 240ml BID 2) Consider CCHO 60gm + cardiac msoft diet 3) Monitor PO intake, lab values, weight trend, and I/O Expected Outcomes/Goals: Intake to meet >75% estimated needs Lab values to improve Fu 3-5 days Plan discussed with: Patient MELANIA SAWANT MD Mar 08, 2025 15:01
[2025-03-08 15:16] VITALS: BP 158/87; PULSE 80; RESP 16; TEMP 98; O2SAT 96
== END 2025-03-08 18:19 | DRG 871 ==
LOC: EDUNIT# 01:41 → EDBD 01:41 → ER 01:41 → OVERFLOW 04:34 → TELE-EAST 23:30
PROVIDERS: ADMIT Family Medicine; ATTEND Family Medicine
PROC: 05HD33Z Insertion of Infusion Device into Right Cephalic Vein, Percutaneous Approach (ICD-10-PCS; principal; 2025-03-07)
PROC: B54MZZA Ultrasonography of Right Upper Extremity Veins, Guidance (ICD-10-PCS; 2025-03-07)
DX: A41.9 Sepsis, unspecified organism (principal); G93.41 Metabolic encephalopathy; N39.0 Urinary tract infection, site not specified; I24.9 Acute ischemic heart disease, unspecified; I69.354 Hemiplegia and hemiparesis following cerebral infarction affecting left non-dominant side; E44.0 Moderate protein-calorie malnutrition; E87.6 Hypokalemia; K27.9 Peptic ulcer, site unspecified, unspecified as acute or chronic, without hemorrhage or perforation; E11.9 Type 2 diabetes mellitus without complications; F03.90 Unspecified dementia, unspecified severity, without behavioral disturbance, psychotic disturbance, mood disturbance, and anxiety; I10 Essential (primary) hypertension; K83.8 Other specified diseases of biliary tract; K57.10 Diverticulosis of small intestine without perforation or abscess without bleeding; E78.00 Pure hypercholesterolemia, unspecified; R65.20 Severe sepsis without septic shock; Z88.0 Allergy status to penicillin; Z90.49 Acquired absence of other specified parts of digestive tract; Z68.23 Body mass index [BMI] 23.0-23.9, adult; Z79.899 Other long term (current) drug therapy
CPT/HCPCS: 36415; 70450; 71045; 74176; 74181; 80053; 80061; 80307; 81001; 82306; 82607; 82962; 83036; 83605; 83735; 83880; 84100; 84443; 84484; 85025; 85610; 85730; 87040; 87086; 87426; 87804; 92610; 93005; 93306; A4344; G0378; J1815; J2185; J2470; J3480

== ENCOUNTER 2025-04-25 16:39 | Inpatient (IN) | payer MEDICARE, MEDICAID ==
[~2025-04-25] VITALS: Ht 157.5 cm; Wt 57.9 kg
[~2025-04-25 16:39] MED LIST: ASPI-543 PO; ATOR10TA PO; CLOP75TA70 PO; LOSA100T33 PO; METF-370 PO
--- NOTE | 2025-04-25 16:54 | ED.PDOC ---
History of Present Illness HPI Comments 84y F who presents to the ED via EMS for chief complaint of G-tube placement. Pt is resident at [facility] and facility called after has been having limited appetite for the past few days and daughter wanted her evaluated and EMS was called. EMS notes pt did eat today but has been having limited appetite. EMS notes upon arrival, pt had low 02 sat and pt was placed on 2 L via NC and 02 sat julia of 97%. EMS notes pt has history of dementia and pt is a0x0x3 which staff at nursing facility note is baseline for pt. Pt now in the ED, otherwise denies any other symptoms at this time. Chief Complaint: G-tube placemetn Time Seen by MD: 16:51 Reviewed Notes: Nurses Notes, Medications, Allergies Allergies: Coded Allergies: Penicillins (Verified Allergy, Intermediate, 03/03/25) Home Meds Reported Medications Metformin Hydrochloride (Metformin Hcl) 500 Mg Tab, 1000 MG PO DAILY for 30 Days, MG 03/03/25 Losartan Potassium & Hydrochlo (Losartan Potassium/Hydroc) 1 Tab Tab, 12.5 TAB PO DAILY, #30 TAB 5 Refills 03/03/25 Clopidogrel Bisulfate (CLOPIDOGREL) 75 Mg Tab, 75 MG PO DAILY for 30 Days, MG 03/03/25 Atorvastatin Calcium (Lipitor) 10 Mg Tab, 1 TAB PO DAILY, #30 TAB 5 Refills 03/03/25 Aspirin (Aspir-Low) 81 Mg Tab, 81 MG PO DAILY for 30 Days, MG 03/03/25 Information Source: Patient, Emergency Med Personnel Mode of Arrival: EMS Severity: Moderate Timing: Days Duration: Since onset Prehospital treatment: Oxygen Medication Refill: For: Other (G- Tube placement) Past Medical History PAST MEDICAL HISTORY: CVA, Dementia, DM, High Lipids, HTN, UTI'S Past Medical History (Other): dsyphagia, PUD Surgical History: Unknown 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 all 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 AND 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 ENGINEER Hx Family History Family History: Unknown Social History Smoker: Non-Smoker Alcohol: Denies ETOH Use Drugs: Denies Drug Use Lives In: Skilled Nursing Constitutional: denies: chills, diaphoresis, fatigue, fever, malaise, sweats, weakness, others EENTM: denies: blurred vision, double vision, ear bleeding, ear discharge, ear drainage, ear pain, ear ringing, eye pain, eye redness, hearing loss, mouth pain, mouth swelling, nasal discharge, nose bleeding, nose congestion, nose pain, photophobia, tearing, throat pain, throat swelling, voice changes, others Respiratory: denies: cough, hemoptysis, orthopnea, SOB at rest, shortness of breath, SOB with excertion, stridor, wheezing, others Cardiovascular: denies: chest pain, dizzy spells, diaphoresis, Dyspnea on exertion, edema, irregular heart beat, left arm pain, lightheadedness, palpitations, PND, syncope, others Gastrointestinal: denies: abdomen distended, abdominal pain, blood streaked bowels, constipated, diarrhea, dysphagia, difficulty swallowing, hematemesis, m viet, nausea, poor appetite, poor fluid intake, rectal bleeding, rectal pain, vomiting, others Genitourinary: denies: abnormal vagina bleeding, burning, dyspareunia, dysuria, flank pain, frequency, hematuria, incontinence, pain, , vagina discharge, urgency, others Neurological: denies: dizziness, fainting, headache, left sided numbness, left sided weakness, numbness, paresthesia, pre-existing deficit, right sided numbness, right sided weakness, seizure, speech problems, tingling, tremors, weakness, others Musculoskeletal: denies: back pain, gout, joint pain, joint swelling, muscle pain, muscle stiffness, neck pain, others Integumetry: denies: bruises, change in color, change in hair/nails, dryness, laceration, lesions, lumps, rash, wounds, others Allergic/Immunocompromised: denies: Difficulty Healing, Frequent Infections, Hives, Itching, others Hematologic/Lymphatic: denies: anemia, blood clots, easy bleeding, easy bruising, swollen glands, others Endocrine: denies: excessive hunger, excessive sweating, excessive thirst, excessive urination, flushing, intolerance to cold, intolerance to heat, unexpla ined weight gain, unexplained weight loss, others Psychiatric: denies: anxiety, bipolar disorder, depression, hopeless, panic disorder, schizophrenia, sleepless, suicidal, others All Other Systems: Reviewed and Negative Physical Exam General Appearance: Moderate Distress HEENT: Normal ENT Inspection, Pharynx Normal, TMs Normal Neck: Full Range of Motion, Non-Tender, Normal, Normal Inspection Respiratory: Chest Non-Tender, Lungs Clear, No Accessory Muscle Use, No Respiratory Distress, Normal Breath Sounds Cardiovascular: No Edema, No JVD, No Murmur, No Gallop, Normal Peripheral Pulses, Regular Rate/Rhythm Breast Exam: Deferred Gastrointestinal: No Organomegaly, Non Tender, No Pulsatile Mass, Normal Bowel Sounds, Soft Genitalia: Other (Vides catheter in place) Pelvic: Deferred Rectal: Deferred Extremities: No calf tenderness, Normal capillary refill, Normal inspection, Normal range of motion, Non-tender, No pedal edema Musculoskeletal : Apperance: Normal Neurologic: Alert, 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 Was a procedure done?: No Differential Dx Considerations may include: G- tube placement, X-Ray, Labs, Meds, VS Vital Signs Date Time Temp Pulse Resp B/P (MAP) Pulse Ox O2 Delivery O2 Flow Rate FiO2 04/25/25 16:47 98.4 88 12 122/68 97 98.4 Lab Test 04/25/25 16:51 Range/Units White Blood Count 5.1 4.4-10.8 10^3/uL Red Blood Count 3.95 L 4.0-5.20 10^6/uL Hemoglobin 10.8 L 12.2-16.2 g/dL Hematocrit 32.4 L 36.0-46.0 % Mean Corpuscular Volume 81.8 80.0-100.0 fL Mean Corpuscular Hemoglobin 27.3 L 28.0-32.0 pg Mean Corpuscular Hemoglobin Concent 33.3 32.0-36.0 g/dL Red Cell Distribution Width 14.7 H 11.8-14.3 % Platelet Count 217 140-450 10^3/uL Mean Platelet Volume 7.9 6.9-10.8 fL Neutrophils (%) (Auto) 48.6 37.0-80.0 % Lymphocytes (%) (Auto) 38.4 10.0-50.0 % Monocytes (%) (Auto) 10.1 0.0-12.0 % Eosinophils (%) (Auto) 2.2 0.0-7.0 % Basophils (%) (Auto) 0.7 0.0-2.0 % Neutrophils # (Auto) 2.5 1.6-8.6 10 ^3/uL Lymphocytes # (Auto) 1.9 0.4-5.4 10 ^3/uL Monocytes # (Auto) 0.5 0-1.3 10 ^3/uL Eosinophils # (Auto) 0.1 0-0.8 10 ^3/uL Basophils # (Auto) 0 0-0.2 10 ^3/uL Nucleated Red Blood Cells 0.1 % Prothrombin Time 11.2 9.3-11.8 sec Prothrombin Time INR 1.06 0.9-1.15 Activated Partial Thromboplast Time 27.8 24.5-34.5 SEC Sodium Level 138 136-145 mmol/L Potassium Level 3.1 L 3.5-5.1 mmol/L Chloride Level 98 98-107 mmol/L Carbon Dioxide Level 31 20-31 mmol/L Anion Gap 9 5-15 Blood Urea Nitrogen 10 9-23 mg/dL Creatinine 0.54 L 0.550-1.02 mg/dL Glomerular Filtration Rate Calc 91 >90 mL/min BUN/Creatinine Ratio 18.5 10.0-20.0 Serum Glucose 164 H 74-106 mg/dL Calcium Level 8.7 8.7-10.4 mg/dL The patient's CBC shows anemia with a hemoglobin of 10.8 hematocrit of 32.4 The chemistry panel is within normal limits At this time the patient is being admitted We are getting a surgery consult. Patient will be admitted for placement of a PEG tube for J-tube Time of 1ST Reevaluation: 17:30 Reevaluation 1ST: Unchanged Patient Education/Counseling: Diagnosis, Treatment, Prognosis Family Education/Counseling: No Family Present SEPSIS Sepsis Screen Physician Orders Heplock Iv (04/25/25 16:46) Vital Signs Date Time Temp Pulse Resp B/P (MAP) Pulse Ox O2 Delivery O2 Flow Rate FiO2 04/25/25 16:47 98.4 88 12 122/68 97 98.4 Laboratory Tests Test 04/25/25 16:51 White Blood Count 5.1 10^3/uL (4.4-10.8) Departure 1 Departure Time of Disposition: 17:50 Impression: Primary Impression: Poor appetite Additional Impressions: Failure to thrive Qualified Codes: R62.7 - Adult failure to thrive Encounter for gastrojejunal tube placement Disposition: ADMITTED INPATIENT Admit to: Med Surg Condition: Fair Critical Care Note Critical Care Time?: No Stability Stability form required: Yes Unstable for transfer: ED Physician Assesment (Clinical assesment) Heart Score Heart Score: Heart Score Response (Comments) Value History N/A 0 EKG N/A 0 Age N/A 0 Risk Factors N/A 0 Troponin N/A 0 Total 0 I personally scribed for NAT HINES MD ([email or web address]) on 04/25/25 at 16:54. Electronically submitted by Araceli Chang ([email or web address]). NAT HINES MD Apr 25, 2025 16:54
[2025-04-25 17:08] LABS: Hematocrit 32.4 % (36.0-46.0); Hemoglobin 10.8 g/dL (12.2-16.2); Mean Corpuscular Hemoglobin 27.3 pg (28.0-32.0); Mean Corpuscular Volume 81.8 fL (80.0-100.0); Nucleated Red Blood Cells % 0.1 %
[2025-04-25 17:12] LABS: Anion Gap 9 (5-15); Carbon Dioxide 31 mmol/L (20-31); Chloride 98 mmol/L (98-107); Sodium 138 mmol/L (136-145)
[2025-04-25 17:18] LABS: BUN/Creatinine Ratio 18.5 (10.0-20.0); Blood Urea Nitrogen 10 mg/dL (9-23)
--- NOTE | 2025-04-25 17:20 | DVHHP2 ---
History of Present Illness HPI 84y F who presents to the ED via EMS for chief complaint of G-tube placement. Pt is resident at [facility] and facility called after has been having limited appetite for the past few days and daughter wanted her evaluated and EMS was called. EMS notes pt did eat today but has been having limited appetite. EMS notes upon arrival, pt had low 02 sat and pt was placed on 2 L via NC and 02 sat julia of 97%. EMS notes pt has history of dementia and pt is a0x0x3 which staff at nursing facility note is baseline for pt. Pt now in the ED, otherwise denies any other symptoms at this time. Home Meds No Active Prescriptions or Reported Meds Review of Systems Constitutional: No symptom reported Ears, Nose, & Throat: No symptom reported Eyes: No symptom reported Pulmonary/Respiratory: No symptom reported Cardiovascular: No symptom reported Gastrointestinal: No symptom reported H&P Exam Vital Signs Vital Signs Date Time Temp Pulse Resp B/P (MAP) Pulse Ox O2 Delivery O2 Flow Rate FiO2 04/25/25 16:47 98.4 88 12 122/68 97 98.4 General Appeara: Well developed, Well nourished Pulmonary/Respiratory: Normal inspection Cardiovascular/Chest: Normal inspection SEPSIS Sepsis Screen Date sepsis recognized/suspect: Apr 25, 2025 Time Sepsis recognized/suspect: 1651 Recent Procedure: No On Antibiotic Therapy: No Respiratory Rate >20: No Heart Rate >90: No Temp<36 C (96.8 F) or >38.3 C: No SBP <90 or MAP <65 mmHG: No New Acute Mental Status Change: No Is the patient on CPAP, BIPAP,: No Physician Orders Heplock Iv (04/25/25 16:46) PTPTT (04/25/25 16:46) Basic Metabolic Panel (04/25/25 16:46) Vital Signs Date Time Temp Pulse Resp B/P (MAP) Pulse Ox O2 Delivery O2 Flow Rate FiO2 04/25/25 16:47 98.4 88 12 122/68 97 98.4 Laboratory Tests Test 04/25/25 16:51 White Blood Count 5.1 10^3/uL (4.4-10.8) Labs/Xrays Labs Test 04/25/25 16:51 Range/Units White Blood Count 5.1 4.4-10.8 10^3/uL Red Blood Count 3.95 L 4.0-5.20 10^6/uL Hemoglobin 10.8 L 12.2-16.2 g/dL Hematocrit 32.4 L 36.0-46.0 % Mean Corpuscular Volume 81.8 80.0-100.0 fL Mean Corpuscular Hemoglobin 27.3 L 28.0-32.0 pg Mean Corpuscular Hemoglobin Concent 33.3 32.0-36.0 g/dL Red Cell Distribution Width 14.7 H 11.8-14.3 % Platelet Count 217 140-450 10^3/uL Mean Platelet Volume 7.9 6.9-10.8 fL Neutrophils (%) (Auto) 48.6 37.0-80.0 % Lymphocytes (%) (Auto) 38.4 10.0-50.0 % Monocytes (%) (Auto) 10.1 0.0-12.0 % Eosinophils (%) (Auto) 2.2 0.0-7.0 % Basophils (%) (Auto) 0.7 0.0-2.0 % Neutrophils # (Auto) 2.5 1.6-8.6 10 ^3/uL Lymphocytes # (Auto) 1.9 0.4-5.4 10 ^3/uL Monocytes # (Auto) 0.5 0-1.3 10 ^3/uL Eosinophils # (Auto) 0.1 0-0.8 10 ^3/uL Basophils # (Auto) 0 0-0.2 10 ^3/uL Nucleated Red Blood Cells 0.1 % Assessment/Plan Primary Diagnosis 84y F who presents to the ED via EMS for chief complaint of G-tube placement. Pt is resident at [facility] and facility called after has been having limited appetite for the past few days and daughter wanted her evaluated and EMS was called. EMS notes pt did eat today but has been having limited appetite. EMS notes upon arrival, pt had low 02 sat and pt was placed on 2 L via NC and 02 sat julia of 97%. EMS notes pt has history of dementia and pt is a0x0x3 which staff at nursing facility note is baseline for pt. Pt now in the ED, otherwise denies any other symptoms at this time. Poor appetite significant weight loss Failure to thrive weakness admitted consult to GI if needed for PEG tube Plan discussed with: Other (nursing) SAMARA QURESHI DO Apr 25, 2025 17:20
[2025-04-25 17:21] LABS: INR 1.06 (0.9-1.15); Partial Thromboplastin Time 27.8 SEC (24.5-34.5); Prothrombin Time 11.2 sec (9.3-11.8)
[2025-04-25 17:26] LABS: Calcium 8.7 mg/dL (8.7-10.4); Glucose 164 mg/dL (74-106); Potassium 3.1 mmol/L (3.5-5.1)
[2025-04-25] MEDS: SODIUM CHLORIDE 0.9% 1,000 ML IV SCH (17:30)
[2025-04-25] MEDS ORDERED: MORPHINE SULFATE INJ 2 MG/ml SYRG IV PRN ×2 (17:30)
[2025-04-25] MEDS ORDERED: ACETAMINOPHEN 325 MG TAB PO PRN (17:30)
[2025-04-25] MEDS ORDERED: NITROGLYCERIN 0.4 MG SL TAB SL PRN (17:30)
[2025-04-25 17:38] VITALS: PULSE 81; O2SAT 99
[2025-04-25 19:30] VITALS: PULSE 74; O2SAT 99
[2025-04-25 21:54] LABS: Urine Budding Yeast FEW /hpf (None Seen); Urine Protein, UAD 1+ (Negative)
[2025-04-25 23:50] VITALS: BP 136/76; PULSE 77; RESP 17; TEMP 97.9; O2SAT 96
[2025-04-26 05:00] VITALS: BP 135/77; PULSE 79; RESP 17; TEMP 97.8; O2SAT 97
[2025-04-26 07:13] LABS: Hematocrit 36.7 % (36.0-46.0); Hemoglobin 12.7 g/dL (12.2-16.2); Mean Corpuscular Hemoglobin 30.9 pg (28.0-32.0); Mean Corpuscular Volume 89.6 fL (80.0-100.0); Nucleated Red Blood Cells % 0.7 %
[2025-04-26 07:29] LABS: Alanine Aminotransferase 16 U/L (7-40); Albumin 3.3 g/dL (3.2-4.8); Anion Gap 12 (5-15); BUN/Creatinine Ratio 22.4 (10.0-20.0); Bilirubin, Total 0.9 mg/dL (0.2-1.0); Blood Urea Nitrogen 11 mg/dL (9-23); Calcium 8.9 mg/dL (8.7-10.4); Carbon Dioxide 27 mmol/L (20-31); Chloride 101 mmol/L (98-107); Sodium 140 mmol/L (136-145); Total Protein 7.4 g/dL (5.7-8.2)
[2025-04-26 07:30] LABS: Glucose 137 mg/dL (74-106); Potassium 3.2 mmol/L (3.5-5.1)
[2025-04-26 07:44] LABS: Alkaline Phosphatase 74 U/L (46-116)
[2025-04-26] MEDS: ENOXAPARIN SOD 40 MG/0.4 ML SYRINGE SC SCH (08:35)
[2025-04-26] MEDS: HYDROcodone-ACET 5/325MG TAB PO PRN (08:38)
[2025-04-26 09:00] VITALS: BP 133/85; PULSE 87; RESP 16; TEMP 97.3; O2SAT 95
[2025-04-26] MEDS: MORPHINE SULFATE 4 MG/ML SYR/VIAL IV PRN (10:31)
[2025-04-26 13:00] VITALS: BP 104/58; PULSE 70; RESP 18; TEMP 96.9; O2SAT 95
--- NOTE | 2025-04-26 14:24 | DVHINCON2 ---
GI Consult Consult Note GI consult note Date of Consultation: 04/26/2025 Chief Complaint: G-tube placement Referring Physician: Dr. Srinivasan H&P: 84-year-old female admitted from [facility] due to having decreased appetite for the last few days and possible G-tube placement. No complains of abdominal pain. No nausea or vomiting. No melena or red blood in stool Patient has history of dementia Family at bedside translating Patient is on Plavix and aspirin unsure of last dosage Past Medical History: CVA, Dementia, DM, High Lipids, HTN, UTI'S, dysphagia, PUD Past Surgical History: Unknown Social History: NO smoking, drinking ETOH and use of illegal drugs. Family History: Unknown per chart Review of Systems: As above Physical exam: General: Patient is resting comfortably Chest: lung du clear to auscultation Heart: RRR, no murmur Abdomen: non-distended, no tenderness to palpation, +BS Labs: Labs Test 04/26/25 06:25 04/25/25 21:40 04/25/25 16:51 Range/Units White Blood Count 4.6 4.4-10.8 10^3/uL Red Blood Count 4.10 4.0-5.20 10^6/uL Hemoglobin 12.7 # 12.2-16.2 g/dL Hematocrit 36.7 # 36.0-46.0 % Mean Corpuscular Volume 89.6 # 80.0-100.0 fL Mean Corpuscular Hemoglobin 30.9 28.0-32.0 pg Mean Corpuscular Hemoglobin Concent 34.5 32.0-36.0 g/dL Red Cell Distribution Width 14.6 H 11.8-14.3 % Platelet Count 239 140-450 10^3/uL Mean Platelet Volume 8.3 6.9-10.8 fL Neutrophils (%) (Auto) 54.8 37.0-80.0 % Lymphocytes (%) (Auto) 34.3 10.0-50.0 % Monocytes (%) (Auto) 7.6 0.0-12.0 % Eosinophils (%) (Auto) 2.6 0.0-7.0 % Basophils (%) (Auto) 0.7 0.0-2.0 % Neutrophils # (Auto) 2.5 1.6-8.6 10 ^3/uL Lymphocytes # (Auto) 1.6 0.4-5.4 10 ^3/uL Monocytes # (Auto) 0.3 0-1.3 10 ^3/uL Eosinophils # (Auto) 0.1 0-0.8 10 ^3/uL Basophils # (Auto) 0 0-0.2 10 ^3/uL Nucleated Red Blood Cells 0.7 % Sodium Level 140 136-145 mmol/L Potassium Level 3.2 L 3.5-5.1 mmol/L Chloride Level 101 98-107 mmol/L Carbon Dioxide Level 27 20-31 mmol/L Anion Gap 12 5-15 Blood Urea Nitrogen 11 9-23 mg/dL Creatinine 0.49 L 0.550-1.02 mg/dL Glomerular Filtration Rate Calc 93 >90 mL/min BUN/Creatinine Ratio 22.4 H 10.0-20.0 Serum Glucose 137 H 74-106 mg/dL Calcium Level 8.9 8.7-10.4 mg/dL Total Bilirubin 0.9 0.2-1.0 mg/dL Aspartate Amino Transferase (AST) 21 13-40 U/L Alanine Aminotransferase (ALT) 16 7-40 U/L Alkaline Phosphatase 74 46-116 U/L Total Protein 7.4 5.7-8.2 g/dL Albumin 3.3 3.2-4.8 g/dL Urine Color Yellow Yellow Urine Clarity Turbid H Clear Urine pH 6.5 5.0-9.0 Urine Specific [place] 1.013 1.001-1.035 Urine Protein 1+ H Negative Urine Ketones 2+ H Negative Urine Blood 1+ H Negative /uL Urine Nitrite 1+ H Negative Urine Bilirubin Negative Negative Urine Urobilinogen 8 H Negative mg/dL Urine Leukocyte Esterase 3+ Negative /uL Urine RBC 14 0 - 4 /hpf Urine Microscopic WBC 101 H 0-5 /HPF Urine Squamous Epithelial Cells Few <5 /hpf Urine Bacteria Many H None Seen /hpf Urine Mucus Few None Seen Urine Yeast (Budding) Few None Seen /hpf Urine Glucose Normal Normal mg/dL Prothrombin Time 11.2 9.3-11.8 sec Prothrombin Time INR 1.06 0.9-1.15 Activated Partial Thromboplast Time 27.8 24.5-34.5 SEC Imaging: Assessment: Peg tube placement Failure to thrive Possible UTI Plan: Discussed with Dr. Mitchell Swallow evaluation recommended Full liquid diet advance to pureed soft if tolerating along with nutritional supplement with boost Hold blood thinners Possible consideration for EGD with PEG placement if needed Urine culture and antibiotics recommended Plan discussed with family at bedside and RN Thank you for this consult Date of Service: Apr 26, 2025 Billing Provider: HEMAL GOSS Common Visit Codes: CONSULT ONLY Consultation Codes: [id number] CONSULT <60MIN HEMAL GOSS Apr 26, 2025 14:24
[2025-04-26 17:00] VITALS: BP 132/62; PULSE 78; RESP 16; TEMP 97.3; O2SAT 95
[2025-04-26 21:00] VITALS: BP 116/62; PULSE 88; RESP 18; TEMP 97.5; O2SAT 92
[2025-04-27] VITALS (7 sets, daily range): BP systolic 117–147; BP diastolic 54–74; PULSE 73–88; RESP 16–20; TEMP 97.7–99.4; O2SAT 93–97
[2025-04-27] MEDS: Glucerna Carbsteady SHAKE Vanilla 8oz PO SCH (08:00)
--- NOTE | 2025-04-27 11:54 | DVHPN2 ---
Progress Note Date Seen: Apr 27, 2025 Resident Creating Document: RACHELL SCHRADER RESIDENT Medical Necessity Reason Pt with a Central, PICC or Fol: No Subjective Review of Systems Abdomen normoactive. Nontender. Having multiple loose watery bowel movements. C diff pending. Objective vital signs Vital Sign Date Time Temp Pulse Resp B/P (MAP) Pulse Ox O2 Delivery O2 Flow Rate FiO2 04/27/25 09:00 97.7 88 20 123/72 (89) 96 97.7 04/27/25 08:00 Room Air* 0 21 Total Intake and Output 04/26/25 04/26/25 04/27/25 15:00 23:00 07:00 Intake Total 150 ml Output Total 150 ml 350 ml Balance 0 ml -350 ml medications Current Medications Medications Dose Ordered Sig/Brianne Route Start Time Stop Time Status Last Admin Dose Admin Sodium Chloride 1,000 ml @ 60 mls/hr [id number] IV 04/25/25 17:30 04/27/25 05:08 60 MLS/HR Acetaminophen/ Hydrocodone Bitart 1 tab Q4HP PRN PO 04/25/25 17:30 04/27/25 10:16 1 TAB Enoxaparin Sodium 40 mg DAILY SC 04/26/25 10:00 04/27/25 10:17 40 MG Acetaminophen 650 mg Q6HP PRN PO 04/25/25 17:30 Nitroglycerin 0.4 mg Q5MINP PRN SL 04/25/25 17:30 Morphine Sulfate 2 mg Q30M PRN IV 04/25/25 17:30 Morphine Sulfate 2 mg Q4HPRN PRN IV 04/26/25 08:45 04/26/25 10:31 2 MG Enteral Nutritional Formula 240 ml TIDWM PO 04/26/25 18:00 04/27/25 08:00 240 ML Examination Patient lying in bed, in no acute distress General: Well-built, afebrile, palor, mucosae are moist Cardiovascular: Regular S1 and S2. No murmurs, gallops or rubs. No JVD elevation. No pedal edema Respiratory: Normal B/L air entry on room air. Clear lung sounds on auscultation Abdomen: Soft, nontender, nondistended, normoactive bowel sounds, no rebound tenderness, no organomegaly, no masses Genitourinary: Deferred laboratory and microbiology Laboratory Tests 04/26/25 06:25 Test 04/26/25 06:25 Range/Units Serum Glucose 137 H 74-106 mg/dL Labs and/or images reviewed: Labs reviewed by me, Image(s) reviewed by me Problem List/Assessment/Plan Problem List/Assessment/Plan Peg tube placement Failure to thrive Possible UTI Anemia likely normocytic Hypokalemia Plan: Recommendation: Dr. Mitchell Continue pureed diet, IV fluids Follow up with C diff Florastor daily Swallow evaluation recommended Hold blood thinners Possible consideration for EGD with PEG placement if needed Urine culture and antibiotics recommended Replenish potassium, check magnesium Plan discussed with family at bedside and RN Case discussed with Dr. Mitchell Plan discussed with: Patient RACHELL SCHRADER RESIDENT Apr 27, 2025 11:54
[2025-04-27] MEDS: FLORASTOR (S. BOULARDII) 250 MG CAP PO SCH (12:06)
[2025-04-27] MEDS ORDERED: DEXTROSE (50%) 50ML SYRG IV PRN (14:45)
[2025-04-27] MEDS: ACCU-CHEK COMFORT CURVE STRIP VI SCH (17:00)
[2025-04-27] MEDS: InsuLIN REG 1unit/0.01ml Soln (100units/ml) SC SCH (17:00)
[2025-04-28] VITALS (7 sets, daily range): BP systolic 120–144; BP diastolic 53–86; PULSE 70–88; RESP 16–19; TEMP 97.4–98.4; O2SAT 85–99
[2025-04-28] MEDS: InsuLIN REG 1unit/0.01ml Soln (100units/ml) SC SCH (00:06)
[2025-04-28 00:31] LABS: Alanine Aminotransferase 12 U/L (7-40); Alkaline Phosphatase 59 U/L (46-116); Anion Gap 9 (5-15); BUN/Creatinine Ratio 24.2 (10.0-20.0); Bilirubin, Total 0.5 mg/dL (0.2-1.0); Carbon Dioxide 28 mmol/L (20-31); Chloride 103 mmol/L (98-107); Sodium 140 mmol/L (136-145); Total Protein 5.8 g/dL (5.7-8.2)
[2025-04-28 00:36] LABS: Albumin 2.7 g/dL (3.2-4.8); Blood Urea Nitrogen 8 mg/dL (9-23); Calcium 8.1 mg/dL (8.7-10.4); Glucose 144 mg/dL (74-106); Potassium 3.2 mmol/L (3.5-5.1)
[2025-04-28] MEDS ORDERED: POTASSIUM CHL 20 Meq TABLET PO ONE (15:45)
[2025-04-28] MEDS ORDERED: POTASSIUM EFFERVESENT TAB 25 MEQ PO ONE (18:00)
--- NOTE | 2025-04-28 20:14 | DVHPN2 ---
Progress Note - Dictate Date Seen: Apr 28, 2025 Medical Necessity Reason Pt with a Central, PICC or Fol: No Subjective Continued diarrhea Six bowel movements recorded since this morning Nurses report no bleeding Stool for C diff is negative vital signs Vital Sign Date Time Temp Pulse Resp B/P (MAP) Pulse Ox O2 Delivery O2 Flow Rate FiO2 04/28/25 17:00 97.5 86 16 144/86 (105) 85 97.5 04/28/25 08:00 Room Air* 0 21 Total Intake and Output 04/27/25 04/27/25 04/28/25 15:00 23:00 07:00 Intake Total 334 ml 700 ml Output Total 275 ml Balance 59 ml 700 ml medications Current Medications Medications Dose Ordered Sig/Brianne Route Start Time Stop Time Status Last Admin Dose Admin Sodium Chloride 1,000 ml @ 60 mls/hr [id number] IV 04/25/25 17:30 04/27/25 19:30 60 MLS/HR Acetaminophen/ Hydrocodone Bitart 1 tab Q4HP PRN PO 04/25/25 17:30 04/28/25 05:51 1 TAB Enoxaparin Sodium 40 mg DAILY SC 04/26/25 10:00 04/28/25 10:10 40 MG Acetaminophen 650 mg Q6HP PRN PO 04/25/25 17:30 Nitroglycerin 0.4 mg Q5MINP PRN SL 04/25/25 17:30 Morphine Sulfate 2 mg Q30M PRN IV 04/25/25 17:30 Morphine Sulfate 2 mg Q4HPRN PRN IV 04/26/25 08:45 04/28/25 10:09 2 MG Enteral Nutritional Formula 240 ml TIDWM PO 04/26/25 18:00 04/28/25 18:00 240 ML Saccharomyces Boulardii 250 mg DAILY PO 04/27/25 12:00 04/28/25 10:08 250 MG Diagnostic Test (Pha) 1 strip ACHS 04/27/25 17:00 04/28/25 17:00 1 STRIP Insulin Human Regular HS SC 04/27/25 22:00 04/28/25 00:06 2 UNITS Insulin Human Regular AC SC 04/27/25 17:00 04/28/25 12:17 3 UNITS Dextrose 50 ml UD PRN IV 04/27/25 14:45 Levofloxacin 50 ml @ 50 mls/hr HS IV 04/28/25 22:00 objective General: Well-built, afebrile, palor, mucosae are moist Cardiovascular: Regular S1 and S2. No murmurs, gallops or rubs. No JVD elevation. No pedal edema Respiratory: Normal B/L air entry on room air. Clear lung sounds on auscultation Abdomen: Soft, nontender, nondistended, normoactive bowel sounds, no rebound tenderness, no organomegaly, no masses Extremities no clubbing cyanosis or edema laboratory and microbiology Laboratory Tests 04/27/25 23:45 04/26/25 06:25 Test 04/27/25 23:45 Range/Units Serum Glucose 144 H 74-106 mg/dL Problems(with codes): (1) Failure to thrive (2) Poor appetite (3) UTI (urinary tract infection) (4) Duodenal diverticulum Prognosis Plan Patient was suspected to have C diff because of recent antibiotic use with Meropenem however C diff toxin was negative Check stool for WBC and bacterial culture and occult blood Broad-spectrum antibiotics Imodium or Questran as needed Probiotics and acidophilus Plan discussed with: Patient, Other (Nurse) MELANIA SAWANT MD Apr 28, 2025 20:14
[2025-04-28] MEDS: POTASSIUM EFFERVESENT TAB 25 MEQ PO ONE (20:30)
[2025-04-29] VITALS (8 sets, daily range): BP systolic 104–140; BP diastolic 57–74; PULSE 70–87; RESP 15–18; TEMP 98–98.9; O2SAT 90–97
--- NOTE | 2025-04-29 13:59 | DVHPN2 ---
Subjective Patient is able to tolerate pureed diet but only eating few bites Patient is having multiple bowel movements in a day Negative for C diff Changes from previous H/P or p: No Changes Objective Vitals Vital Signs Date Time Temp Pulse Resp B/P (MAP) Pulse Ox O2 Delivery O2 Flow Rate FiO2 04/29/25 13:09 98.0 77 15 138/67 (90) 90 98.0 04/29/25 08:00 Room Air* 0 21 Intake/Output Intake and Output 04/29/25 07:00 Intake Total 980 ml Output Total 1800 ml Balance -820 ml Intake Oral 980 ml Output Urine Total 1800 ml # Bowel Movements 3 Exam General: Patient is resting comfortably Chest: lung du clear to auscultation Heart: RRR, no murmur Abdomen: non-distended, no tenderness to palpation, +BS Medications Current Medications Medications Dose Ordered Sig/Brianne Route Start Time Stop Time Status Last Admin Dose Admin Sodium Chloride 1,000 ml @ 60 mls/hr [id number] IV 04/25/25 17:30 04/29/25 04:50 60 MLS/HR Acetaminophen/ Hydrocodone Bitart 1 tab Q4HP PRN PO 04/25/25 17:30 04/28/25 23:24 1 TAB Enoxaparin Sodium 40 mg DAILY SC 04/26/25 10:00 04/28/25 10:10 40 MG Acetaminophen 650 mg Q6HP PRN PO 04/25/25 17:30 Nitroglycerin 0.4 mg Q5MINP PRN SL 04/25/25 17:30 Morphine Sulfate 2 mg Q30M PRN IV 04/25/25 17:30 Morphine Sulfate 2 mg Q4HPRN PRN IV 04/26/25 08:45 04/29/25 04:23 2 MG Enteral Nutritional Formula 240 ml TIDWM PO 04/26/25 18:00 04/29/25 13:20 240 ML Saccharomyces Boulardii 250 mg DAILY PO 04/27/25 12:00 04/29/25 10:01 250 MG Diagnostic Test (Pha) 1 strip ACHS 04/27/25 17:00 04/29/25 11:28 1 STRIP Insulin Human Regular HS SC 04/27/25 22:00 04/28/25 22:00 2 UNITS Insulin Human Regular AC SC 04/27/25 17:00 04/29/25 11:28 2 UNITS Dextrose 50 ml UD PRN IV 04/27/25 14:45 Levofloxacin 50 ml @ 50 mls/hr HS IV 04/28/25 22:00 04/28/25 22:52 50 MLS/HR Metronidazole 100 ml @ 100 mls/hr Q8HR IV 04/28/25 22:00 04/29/25 13:33 100 MLS/HR Laboratory Results Laboratory Tests 04/26/25 06:25 04/27/25 23:45 Urinalysis Test 04/25/25 21:40 Urine Color Yellow (Yellow) Urine Clarity Turbid (Clear) H Urine pH 6.5 (5.0-9.0) Urine Specific [place] 1.013 (1.001-1.035) Urine Protein 1+ (Negative) H Urine Ketones 2+ (Negative) H Urine Blood 1+ /uL (Negative) H Urine Nitrite 1+ (Negative) H Urine Bilirubin Negative (Negative) Urine Urobilinogen 8 mg/dL (Negative) H Urine Leukocyte Esterase 3+ /uL (Negative) Urine RBC 14 /hpf (0 - 4) Urine Microscopic WBC 101 /HPF (0-5) H Urine Squamous Epithelial Cells Few /hpf (<5) Urine Bacteria Many /hpf (None Seen) H Urine Mucus Few (None Seen) Urine Yeast (Budding) Few /hpf (None Seen) Urine Glucose Normal mg/dL (Normal) Microbiology Microbiology Date/Time Source Procedure Growth Status 04/28/25 06:36 Urine - Vides Port Urine Culture - Preliminary Resulted 04/27/25 07:50 Stool Clostridium difficile Toxin Assay - Final Complete Assessment/Plan Assessment/Plan Peg tube placement Failure to thrive Possible UTI Plan: Discussed with Dr. Stephen Goff Continue current treatment Diet as tolerated Possible consideration for EGD with PEG placement if needed Plan discussed with: Son My Orders Orders - HEMAL GOSS Procedure Category Date Status Time Loperamide Capsule PHA 04/29/25 Verified (Imodium Capsule) 14:00 Date of Service: Apr 29, 2025 Billing Provider: HEMAL GOSS Common Visit Codes: [id number] INP/OBS CARE(HIGH) HEMAL GOSS Apr 29, 2025 13:59
[2025-04-29] MEDS: LOPERAMIDE HCL 2 MG CAP/TAB PO ONE (14:48)
--- NOTE | 2025-04-29 16:33 | DVHDS2 ---
Discharge Summary Date of Admission Apr 25, 2025 at 17:20 Date of Discharge: Apr 29, 2025 Labs/Diagnostic Data: Laboratory Results Test 04/29/25 11:15 04/29/25 11:09 04/27/25 23:45 04/26/25 06:25 POC Glucose 153 mg/dl (70-106) Sodium Level 140 mmol/L (136-145) Potassium Level 3.2 mmol/L (3.5-5.1) Chloride Level 103 mmol/L (98-107) Carbon Dioxide Level 28 mmol/L (20-31) Anion Gap 9 (5-15) Blood Urea Nitrogen 8 mg/dL (9-23) Creatinine 0.33 mg/dL (0.550-1.02) Glomerular Filtration Rate Calc 103 mL/min (>90) BUN/Creatinine Ratio 24.2 (10.0-20.0) Serum Glucose 144 mg/dL (74-106) Calcium Level 8.1 mg/dL (8.7-10.4) Total Bilirubin 0.5 mg/dL (0.2-1.0) Aspartate Amino Transferase (AST) 15 U/L (13-40) Alanine Aminotransferase (ALT) 12 U/L (7-40) Alkaline Phosphatase 59 U/L (46-116) Total Protein 5.8 g/dL (5.7-8.2) Albumin 2.7 g/dL (3.2-4.8) White Blood Count 4.6 10^3/uL (4.4-10.8) Red Blood Count 4.10 10^6/uL (4.0-5.20) Hemoglobin 12.7 g/dL (12.2-16.2) Hematocrit 36.7 % (36.0-46.0) Mean Corpuscular Volume 89.6 fL (80.0-100.0) Mean Corpuscular Hemoglobin 30.9 pg (28.0-32.0) Mean Corpuscular Hemoglobin Concent 34.5 g/dL (32.0-36.0) Red Cell Distribution Width 14.6 % (11.8-14.3) Platelet Count 239 10^3/uL (140-450) Mean Platelet Volume 8.3 fL (6.9-10.8) Neutrophils (%) (Auto) 54.8 % (37.0-80.0) Lymphocytes (%) (Auto) 34.3 % (10.0-50.0) Monocytes (%) (Auto) 7.6 % (0.0-12.0) Eosinophils (%) (Auto) 2.6 % (0.0-7.0) Basophils (%) (Auto) 0.7 % (0.0-2.0) Neutrophils # (Auto) 2.5 10 ^3/uL (1.6-8.6) Lymphocytes # (Auto) 1.6 10 ^3/uL (0.4-5.4) Monocytes # (Auto) 0.3 10 ^3/uL (0-1.3) Eosinophils # (Auto) 0.1 10 ^3/uL (0-0.8) Basophils # (Auto) 0 10 ^3/uL (0-0.2) Nucleated Red Blood Cells 0.7 % Test 04/25/25 21:40 04/25/25 16:51 Urine Color Yellow (Yellow) Urine Clarity Turbid (Clear) Urine pH 6.5 (5.0-9.0) Urine Specific [place] 1.013 (1.001-1.035) Urine Protein 1+ (Negative) Urine Ketones 2+ (Negative) Urine Blood 1+ /uL (Negative) Urine Nitrite 1+ (Negative) Urine Bilirubin Negative (Negative) Urine Urobilinogen 8 mg/dL (Negative) Urine Leukocyte Esterase 3+ /uL (Negative) Urine RBC 14 /hpf (0 - 4) Urine Microscopic WBC 101 /HPF (0-5) Urine Squamous Epithelial Cells Few /hpf (<5) Urine Bacteria Many /hpf (None Seen) Urine Mucus Few (None Seen) Urine Yeast (Budding) Few /hpf (None Seen) Urine Glucose Normal mg/dL (Normal) Prothrombin Time 11.2 sec (9.3-11.8) Prothrombin Time INR 1.06 (0.9-1.15) Activated Partial Thromboplast Time 27.8 SEC (24.5-34.5) Other Laboratory Tests 04/27/25 23:45 04/26/25 06:25 Brief Hx & Hospital Course: 84y F who presents to the ED via EMS for chief complaint of G-tube placement. Pt is resident at [facility] and facility called after has been having limited appetite for the past few days and daughter wanted her evaluated and EMS was called. EMS notes pt did eat today but has been having limited appetite. EMS notes upon arrival, pt had low 02 sat and pt was placed on 2 L via NC and 02 sat julia of 97%. EMS notes pt has history of dementia and pt is [id number] which staff at nursing facility note is baseline for pt. Pt now in the ED, otherwise denies any other symptoms at this time. Poor appetite Failure to thrive weakness G-tube placement evaluation discharged back to [facility] Condition at Discharge: Fair Final Diagnosis/Problems List failure to thrive Discharge Disposition: Longterm Facility Discharge Instruct/Medications Diet: See Comment Diet comment: g-tube feeding Activity: No Restrictions, As Tolerated No Active Prescriptions or Reported Meds Discharge Statement: "Patient was advised to return to the ER or call 911 if any headaches, dizziness, shortness of breath, chest pain, abdominal pain, bleeding, fevers, or worsening of medical condition. Patient was counseled about treatment plan, medications, possible side effects, patientverbalized understanding. All questions were answered to the best of my ability. This discharge took greater then 30 minutes in planning, reviewing documentation, counseling the patient, and discussing with other team members." ASSESSMENT ASSESSMENT Assessment SAMARA QURESHI DO Apr 29, 2025 16:33
--- NOTE | 2025-04-29 16:34 | DVHPN2 ---
Progress Note Date Seen: Apr 28, 2025 Medical Necessity Reason Pt with a Central, PICC or Fol: No Objective vital signs Vital Sign Date Time Temp Pulse Resp B/P (MAP) Pulse Ox O2 Delivery O2 Flow Rate FiO2 04/29/25 13:09 98.0 77 15 138/67 (90) 90 98.0 04/29/25 08:00 Room Air* 0 21 Total Intake and Output 04/28/25 04/28/25 04/29/25 14:59 22:59 06:59 Intake Total 480 ml 500 ml Output Total 1800 ml Balance 480 ml -1300 ml medications Current Medications Medications Dose Ordered Sig/Brianne Route Start Time Stop Time Status Last Admin Dose Admin Sodium Chloride 1,000 ml @ 60 mls/hr [id number] IV 04/25/25 17:30 04/29/25 04:50 60 MLS/HR Acetaminophen/ Hydrocodone Bitart 1 tab Q4HP PRN PO 04/25/25 17:30 04/28/25 23:24 1 TAB Enoxaparin Sodium 40 mg DAILY SC 04/26/25 10:00 04/28/25 10:10 40 MG Acetaminophen 650 mg Q6HP PRN PO 04/25/25 17:30 Nitroglycerin 0.4 mg Q5MINP PRN SL 04/25/25 17:30 Morphine Sulfate 2 mg Q30M PRN IV 04/25/25 17:30 Morphine Sulfate 2 mg Q4HPRN PRN IV 04/26/25 08:45 04/29/25 04:23 2 MG Enteral Nutritional Formula 240 ml TIDWM PO 04/26/25 18:00 04/29/25 13:20 240 ML Saccharomyces Boulardii 250 mg DAILY PO 04/27/25 12:00 04/29/25 10:01 250 MG Diagnostic Test (Pha) 1 strip ACHS 04/27/25 17:00 04/29/25 11:28 1 STRIP Insulin Human Regular HS SC 04/27/25 22:00 04/28/25 22:00 2 UNITS Insulin Human Regular AC SC 04/27/25 17:00 04/29/25 11:28 2 UNITS Dextrose 50 ml UD PRN IV 04/27/25 14:45 Levofloxacin 50 ml @ 50 mls/hr HS IV 04/28/25 22:00 04/28/25 22:52 50 MLS/HR Metronidazole 100 ml @ 100 mls/hr Q8HR IV 04/28/25 22:00 04/29/25 13:33 100 MLS/HR Examination: GENERAL:Normal, HEENT:Normal, NECK:Normal, LUNGS:Normal laboratory and microbiology Laboratory Tests 04/27/25 23:45 04/26/25 06:25 Test 04/27/25 23:45 Range/Units Serum Glucose 144 H 74-106 mg/dL Microbiology Date/Time Source Procedure Growth Status 04/28/25 06:36 Urine - Vides Port Urine Culture - Preliminary Resulted 04/27/25 07:50 Stool Clostridium difficile Toxin Assay - Final Complete Labs and/or images reviewed: Labs reviewed by me Problem List/Assessment/Plan Problem List/Assessment/Plan acute cystitis with hematuria acute metabolic enceph due to hypoxia deconditioning sevvere PCM (albumin 2.7) significant weigh tloss weakness due to decontiioning and faliure to thrive dementia decreased PO intake acute hypoxic reps failure continue with current tx Plan discussed with: Patient My Orders My Orders Orders - SAMARA QURESHI DO Procedure Category Date Status Time Discharge DISCHARGE 04/29/25 Transmitted 16:32 * Tube Test Technician CONS 04/29/25 Transmitted Consult Dietary Evaluation Review Comments: Tube feeding Glucerna @50ml/hr providing 72g protein 1440kcal meeting 1005 of Pt's protein andd energy needs Expected Outcomes/Goals: imroved appetite, gradully improved nutrition related lab value and physcial strngth. SAMARA QURESHI DO Apr 29, 2025 16:34
--- NOTE | 2025-04-29 16:34 | DVHPN2 ---
Progress Note Date Seen: Apr 27, 2025 Medical Necessity Reason Pt with a Central, PICC or Fol: No Objective vital signs Vital Sign Date Time Temp Pulse Resp B/P (MAP) Pulse Ox O2 Delivery O2 Flow Rate FiO2 04/29/25 13:09 98.0 77 15 138/67 (90) 90 98.0 04/29/25 08:00 Room Air* 0 21 Total Intake and Output 04/28/25 04/28/25 04/29/25 14:59 22:59 06:59 Intake Total 480 ml 500 ml Output Total 1800 ml Balance 480 ml -1300 ml medications Current Medications Medications Dose Ordered Sig/Brianne Route Start Time Stop Time Status Last Admin Dose Admin Sodium Chloride 1,000 ml @ 60 mls/hr [id number] IV 04/25/25 17:30 04/29/25 04:50 60 MLS/HR Acetaminophen/ Hydrocodone Bitart 1 tab Q4HP PRN PO 04/25/25 17:30 04/28/25 23:24 1 TAB Enoxaparin Sodium 40 mg DAILY SC 04/26/25 10:00 04/28/25 10:10 40 MG Acetaminophen 650 mg Q6HP PRN PO 04/25/25 17:30 Nitroglycerin 0.4 mg Q5MINP PRN SL 04/25/25 17:30 Morphine Sulfate 2 mg Q30M PRN IV 04/25/25 17:30 Morphine Sulfate 2 mg Q4HPRN PRN IV 04/26/25 08:45 04/29/25 04:23 2 MG Enteral Nutritional Formula 240 ml TIDWM PO 04/26/25 18:00 04/29/25 13:20 240 ML Saccharomyces Boulardii 250 mg DAILY PO 04/27/25 12:00 04/29/25 10:01 250 MG Diagnostic Test (Pha) 1 strip ACHS 04/27/25 17:00 04/29/25 11:28 1 STRIP Insulin Human Regular HS SC 04/27/25 22:00 04/28/25 22:00 2 UNITS Insulin Human Regular AC SC 04/27/25 17:00 04/29/25 11:28 2 UNITS Dextrose 50 ml UD PRN IV 04/27/25 14:45 Levofloxacin 50 ml @ 50 mls/hr HS IV 04/28/25 22:00 04/28/25 22:52 50 MLS/HR Metronidazole 100 ml @ 100 mls/hr Q8HR IV 04/28/25 22:00 04/29/25 13:33 100 MLS/HR laboratory and microbiology Laboratory Tests 04/27/25 23:45 04/26/25 06:25 Test 04/27/25 23:45 Range/Units Serum Glucose 144 H 74-106 mg/dL Microbiology Date/Time Source Procedure Growth Status 04/28/25 06:36 Urine - Vides Port Urine Culture - Preliminary Resulted 04/27/25 07:50 Stool Clostridium difficile Toxin Assay - Final Complete Labs and/or images reviewed: Labs reviewed by me, Image(s) reviewed by me Problem List/Assessment/Plan Problem List/Assessment/Plan acute cystitis with hematuria acute metabolic enceph due to hypoxia deconditioning sevvere PCM (albumin 2.7) significant weigh tloss weakness due to decontiioning and faliure to thrive dementia decreased PO intake acute hypoxic reps failure continue with current tx Plan discussed with: Patient My Orders My Orders Orders - SAMARA QURESHI DO Procedure Category Date Status Time Discharge DISCHARGE 04/29/25 Transmitted 16:32 * Mapping Engineer CONS 04/29/25 Transmitted Consult Dietary Evaluation Review Comments: Tube feeding Glucerna @50ml/hr providing 72g protein 1440kcal meeting 1005 of Pt's protein andd energy needs Expected Outcomes/Goals: imroved appetite, gradully improved nutrition related lab value and physcial strngth. SAMARA QURESHI DO Apr 29, 2025 16:34
--- NOTE | 2025-04-29 16:34 | DVHPN2 ---
Progress Note Date Seen: Apr 26, 2025 Medical Necessity Reason Pt with a Central, PICC or Fol: No Objective vital signs Vital Sign Date Time Temp Pulse Resp B/P (MAP) Pulse Ox O2 Delivery O2 Flow Rate FiO2 04/29/25 13:09 98.0 77 15 138/67 (90) 90 98.0 04/29/25 08:00 Room Air* 0 21 Total Intake and Output 04/28/25 04/28/25 04/29/25 14:59 22:59 06:59 Intake Total 480 ml 500 ml Output Total 1800 ml Balance 480 ml -1300 ml medications Current Medications Medications Dose Ordered Sig/Brianne Route Start Time Stop Time Status Last Admin Dose Admin Sodium Chloride 1,000 ml @ 60 mls/hr [id number] IV 04/25/25 17:30 04/29/25 04:50 60 MLS/HR Acetaminophen/ Hydrocodone Bitart 1 tab Q4HP PRN PO 04/25/25 17:30 04/28/25 23:24 1 TAB Enoxaparin Sodium 40 mg DAILY SC 04/26/25 10:00 04/28/25 10:10 40 MG Acetaminophen 650 mg Q6HP PRN PO 04/25/25 17:30 Nitroglycerin 0.4 mg Q5MINP PRN SL 04/25/25 17:30 Morphine Sulfate 2 mg Q30M PRN IV 04/25/25 17:30 Morphine Sulfate 2 mg Q4HPRN PRN IV 04/26/25 08:45 04/29/25 04:23 2 MG Enteral Nutritional Formula 240 ml TIDWM PO 04/26/25 18:00 04/29/25 13:20 240 ML Saccharomyces Boulardii 250 mg DAILY PO 04/27/25 12:00 04/29/25 10:01 250 MG Diagnostic Test (Pha) 1 strip ACHS 04/27/25 17:00 04/29/25 11:28 1 STRIP Insulin Human Regular HS SC 04/27/25 22:00 04/28/25 22:00 2 UNITS Insulin Human Regular AC SC 04/27/25 17:00 04/29/25 11:28 2 UNITS Dextrose 50 ml UD PRN IV 04/27/25 14:45 Levofloxacin 50 ml @ 50 mls/hr HS IV 04/28/25 22:00 04/28/25 22:52 50 MLS/HR Metronidazole 100 ml @ 100 mls/hr Q8HR IV 04/28/25 22:00 04/29/25 13:33 100 MLS/HR Examination: GENERAL:Normal, HEENT:Normal, NECK:Normal, LUNGS:Normal laboratory and microbiology Laboratory Tests 04/27/25 23:45 04/26/25 06:25 Test 04/27/25 23:45 Range/Units Serum Glucose 144 H 74-106 mg/dL Microbiology Date/Time Source Procedure Growth Status 04/28/25 06:36 Urine - Vides Port Urine Culture - Preliminary Resulted 04/27/25 07:50 Stool Clostridium difficile Toxin Assay - Final Complete Labs and/or images reviewed: Labs reviewed by me, Image(s) reviewed by me Problem List/Assessment/Plan Problem List/Assessment/Plan acute cystitis with hematuria acute metabolic enceph due to hypoxia deconditioning sevvere PCM (albumin 2.7) significant weigh tloss weakness due to decontiioning and faliure to thrive dementia decreased PO intake acute hypoxic reps failure Plan discussed with: Patient My Orders My Orders Orders - SAMARA QURESHI DO Procedure Category Date Status Time Discharge DISCHARGE 04/29/25 Transmitted 16:32 * Internal Combustion Engine Inspector CONS 04/29/25 Transmitted Consult Dietary Evaluation Review Comments: Tube feeding Glucerna @50ml/hr providing 72g protein 1440kcal meeting 1005 of Pt's protein andd energy needs Expected Outcomes/Goals: imroved appetite, gradully improved nutrition related lab value and physcial strngth. SAMARA QURESHI DO Apr 29, 2025 16:34
[2025-04-30 01:00] VITALS: BP 120/75; PULSE 91; RESP 17; TEMP 98.9; O2SAT 95
[2025-04-30 05:00] VITALS: BP 143/71; PULSE 80; RESP 17; TEMP 97.6; O2SAT 97
--- NOTE | 2025-04-30 12:05 | DVHPN2 ---
Progress Note Date Seen: Apr 30, 2025 Medical Necessity Reason Pt with a Central, PICC or Fol: No Objective vital signs Vital Sign Date Time Temp Pulse Resp B/P (MAP) Pulse Ox O2 Delivery O2 Flow Rate FiO2 04/30/25 05:00 97.6 80 17 143/71 (95) 97 97.6 04/29/25 20:00 Room Air* 0 21 Total Intake and Output 04/29/25 04/29/25 04/30/25 15:00 23:00 07:00 Intake Total 100 ml 600 ml 480 ml Output Total 300 ml Balance 100 ml 300 ml 480 ml medications Current Medications Medications Dose Ordered Sig/Brianne Route Start Time Stop Time Status Last Admin Dose Admin Sodium Chloride 1,000 ml @ 60 mls/hr [id number] IV 04/25/25 17:30 04/29/25 21:30 60 MLS/HR Acetaminophen/ Hydrocodone Bitart 1 tab Q4HP PRN PO 04/25/25 17:30 04/30/25 01:17 1 TAB Enoxaparin Sodium 40 mg DAILY SC 04/26/25 10:00 04/28/25 10:10 40 MG Acetaminophen 650 mg Q6HP PRN PO 04/25/25 17:30 Nitroglycerin 0.4 mg Q5MINP PRN SL 04/25/25 17:30 Morphine Sulfate 2 mg Q30M PRN IV 04/25/25 17:30 Morphine Sulfate 2 mg Q4HPRN PRN IV 04/26/25 08:45 04/29/25 22:41 2 MG Enteral Nutritional Formula 240 ml TIDWM PO 04/26/25 18:00 04/29/25 19:29 240 ML Saccharomyces Boulardii 250 mg DAILY PO 04/27/25 12:00 04/29/25 10:01 250 MG Diagnostic Test (Pha) 1 strip ACHS 04/27/25 17:00 04/30/25 11:31 1 STRIP Insulin Human Regular HS SC 04/27/25 22:00 04/28/25 22:00 2 UNITS Insulin Human Regular AC SC 04/27/25 17:00 04/29/25 17:40 2 UNITS Dextrose 50 ml UD PRN IV 04/27/25 14:45 Levofloxacin 50 ml @ 50 mls/hr HS IV 04/28/25 22:00 04/29/25 21:16 50 MLS/HR Metronidazole 100 ml @ 100 mls/hr Q8HR IV 04/28/25 22:00 04/30/25 06:43 100 MLS/HR laboratory and microbiology Laboratory Tests 04/27/25 23:45 04/26/25 06:25 Test 04/27/25 23:45 Range/Units Serum Glucose 144 H 74-106 mg/dL Microbiology Date/Time Source Procedure Growth Status 04/28/25 06:36 Urine - Vides Port Urine Culture - Preliminary Resulted 04/27/25 07:50 Stool Clostridium difficile Toxin Assay - Final Complete Labs and/or images reviewed: Labs reviewed by me, Image(s) reviewed by me Problem List/Assessment/Plan Problem List/Assessment/Plan acute cystitis with hematuria acute metabolic enceph due to hypoxia deconditioning sevvere PCM (albumin 2.7) significant weigh tloss weakness due to decontiioning and faliure to thrive dementia decreased PO intake acute hypoxic reps failure continue with current tx Plan discussed with: Patient My Orders My Orders Orders - SAMARA QURESHI DO Procedure Category Date Status Time Discharge DISCHARGE 04/29/25 Transmitted 16:32 * English Division Chair CONS 04/29/25 Transmitted Consult Discontinue Vides CAROLEE 04/29/25 In Process Catheter 17:20 Dietary Evaluation Review Comments: Tube feeding Glucerna @50ml/hr providing 72g protein 1440kcal meeting 1005 of Pt's protein andd energy needs Expected Outcomes/Goals: imroved appetite, gradully improved nutrition related lab value and physcial strngth. SAMARA QURESHI DO Apr 30, 2025 12:05
[2025-04-30] MEDS ORDERED: ceFAZolin 1GM/50ML 50 ML IV ONE (14:15)
--- NOTE | 2025-04-30 16:18 | DVHPN2 ---
Progress Note Date Seen: Apr 30, 2025 Resident Creating Document: STEFANO ARSHAD RESIDENT Medical Necessity Reason Pt with a Central, PICC or Fol: No Subjective Review of Systems Patient is able to tolerate pureed diet but only eating few bites Objective vital signs Vital Sign Date Time Temp Pulse Resp B/P (MAP) Pulse Ox O2 Delivery O2 Flow Rate FiO2 04/30/25 05:00 97.6 80 17 143/71 (95) 97 97.6 04/29/25 20:00 Room Air* 0 21 Total Intake and Output 04/29/25 04/29/25 04/30/25 15:00 23:00 07:00 Intake Total 100 ml 600 ml 480 ml Output Total 300 ml Balance 100 ml 300 ml 480 ml medications Current Medications Medications Dose Ordered Sig/Brianne Route Start Time Stop Time Status Last Admin Dose Admin Sodium Chloride 1,000 ml @ 60 mls/hr [id number] IV 04/25/25 17:30 04/29/25 21:30 60 MLS/HR Acetaminophen/ Hydrocodone Bitart 1 tab Q4HP PRN PO 04/25/25 17:30 04/30/25 01:17 1 TAB Acetaminophen 650 mg Q6HP PRN PO 04/25/25 17:30 Nitroglycerin 0.4 mg Q5MINP PRN SL 04/25/25 17:30 Morphine Sulfate 2 mg Q30M PRN IV 04/25/25 17:30 Morphine Sulfate 2 mg Q4HPRN PRN IV 04/26/25 08:45 04/29/25 22:41 2 MG Enteral Nutritional Formula 240 ml TIDWM PO 04/26/25 18:00 04/29/25 19:29 240 ML Saccharomyces Boulardii 250 mg DAILY PO 04/27/25 12:00 04/29/25 10:01 250 MG Diagnostic Test (Pha) 1 strip ACHS 04/27/25 17:00 04/30/25 11:31 1 STRIP Insulin Human Regular HS SC 04/27/25 22:00 04/28/25 22:00 2 UNITS Insulin Human Regular AC SC 04/27/25 17:00 04/29/25 17:40 2 UNITS Dextrose 50 ml UD PRN IV 04/27/25 14:45 Levofloxacin 50 ml @ 50 mls/hr HS IV 04/28/25 22:00 04/29/25 21:16 50 MLS/HR Metronidazole 100 ml @ 100 mls/hr Q8HR IV 04/28/25 22:00 04/30/25 06:43 100 MLS/HR Examination Patient lying in bed, in no acute distress General: Well-built, afebrile, palor, mucosae are moist Cardiovascular: Regular S1 and S2. No murmurs, gallops or rubs. No JVD elevation. No pedal edema Respiratory: Normal B/L air entry on room air. Clear lung sounds on auscultation Abdomen: Soft, nontender, nondistended, normoactive bowel sounds, no rebound tenderness, no organomegaly, no masses laboratory and microbiology Laboratory Tests 04/27/25 23:45 04/26/25 06:25 Test 04/27/25 23:45 Range/Units Serum Glucose 144 H 74-106 mg/dL Microbiology Date/Time Source Procedure Growth Status 04/28/25 06:36 Urine - Vides Port Urine Culture - Final Complete 04/27/25 07:50 Stool Clostridium difficile Toxin Assay - Final Complete Problem List/Assessment/Plan Problem List/Assessment/Plan Peg tube placement Failure to thrive Possible UTI Anemia likely normocytic Hypokalemia Vascular dementia Plan: Recommendation: Dr. Mitchell Discussed with Jay, her daughter, family agrees on PEG tube Hold blood thinners Orders for placed for possible EGD Case discussed with Dr. Mitchell Plan discussed with: Other (rn, jay her daughter ) Dietary Evaluation Review Comments: Tube feeding Glucerna @50ml/hr providing 72g protein 1440kcal meeting 1005 of Pt's protein andd energy needs Expected Outcomes/Goals: imroved appetite, gradully improved nutrition related lab value and physcial strngth. STEFANO ARSHAD RESIDENT Apr 30, 2025 16:18
[2025-04-30 16:20] VITALS: BP 142/83; PULSE 89; RESP 16; TEMP 97.9; O2SAT 94
[2025-04-30 20:00] VITALS: PULSE 69; RESP 17
[2025-04-30 21:00] VITALS: BP 137/69; PULSE 69; RESP 17; TEMP 97.5; O2SAT 89
[2025-05-01 01:00] VITALS: BP 131/79; PULSE 77; RESP 18; TEMP 98.4; O2SAT 94
[2025-05-01 05:00] VITALS: BP 111/75; PULSE 78; RESP 18; TEMP 98; O2SAT 96
[2025-05-01 06:35] LABS: Hematocrit 30.7 % (36.0-46.0); Hemoglobin 10.2 g/dL (12.2-16.2); Mean Corpuscular Hemoglobin 27.1 pg (28.0-32.0); Mean Corpuscular Volume 81.5 fL (80.0-100.0); Nucleated Red Blood Cells % 0.3 %
[2025-05-01 06:53] LABS: INR 1.12 (0.9-1.15); Partial Thromboplastin Time 31.4 SEC (24.5-34.5); Prothrombin Time 11.7 sec (9.3-11.8)
[2025-05-01 08:30] VITALS: BP 115/76; PULSE 76; RESP 18; TEMP 98; O2SAT 97
[2025-05-01] MEDS ORDERED: ceFAZolin 1GM/50ML 50 ML IV ONE (10:00)
[2025-05-01] MEDS: PANTOPRAZOLE 40 MG/10 ML VIAL INJ IV SCH (10:26)
--- NOTE | 2025-05-01 13:22 | DVHPN2 ---
Progress Note Date Seen: May 01, 2025 Medical Necessity Reason Pt with a Central, PICC or Fol: No Objective vital signs Vital Sign Date Time Temp Pulse Resp B/P (MAP) Pulse Ox O2 Delivery O2 Flow Rate FiO2 05/01/25 08:30 98.0 76 18 115/76 (89) 97 98.0 04/30/25 20:00 Room Air* 0 21 Total Intake and Output 04/30/25 04/30/25 05/01/25 15:00 23:00 07:00 Intake Total 200 ml 50 ml Balance 200 ml 50 ml medications Current Medications Medications Dose Ordered Sig/Brianne Route Start Time Stop Time Status Last Admin Dose Admin Sodium Chloride 1,000 ml @ 60 mls/hr [id number] IV 04/25/25 17:30 05/01/25 06:46 60 MLS/HR Acetaminophen/ Hydrocodone Bitart 1 tab Q4HP PRN PO 04/25/25 17:30 04/30/25 01:17 1 TAB Acetaminophen 650 mg Q6HP PRN PO 04/25/25 17:30 Nitroglycerin 0.4 mg Q5MINP PRN SL 04/25/25 17:30 Morphine Sulfate 2 mg Q30M PRN IV 04/25/25 17:30 Morphine Sulfate 2 mg Q4HPRN PRN IV 04/26/25 08:45 05/01/25 02:29 2 MG Enteral Nutritional Formula 240 ml TIDWM PO 04/26/25 18:00 05/01/25 07:34 240 ML Saccharomyces Boulardii 250 mg DAILY PO 04/27/25 12:00 04/29/25 10:01 250 MG Diagnostic Test (Pha) 1 strip ACHS 04/27/25 17:00 05/01/25 10:27 1 STRIP Insulin Human Regular HS SC 04/27/25 22:00 04/28/25 22:00 2 UNITS Insulin Human Regular AC SC 04/27/25 17:00 05/01/25 10:41 2 UNITS Dextrose 50 ml UD PRN IV 04/27/25 14:45 Levofloxacin 50 ml @ 50 mls/hr HS IV 04/28/25 22:00 04/30/25 23:41 50 MLS/HR Metronidazole 100 ml @ 100 mls/hr Q8HR IV 04/28/25 22:00 05/01/25 05:18 100 MLS/HR Pantoprazole Sodium 40 mg DAILY IV 05/01/25 10:00 05/01/25 10:26 40 MG laboratory and microbiology Laboratory Tests 05/01/25 05:40 04/27/25 23:45 Test 04/27/25 23:45 Range/Units Serum Glucose 144 H 74-106 mg/dL Microbiology Date/Time Source Procedure Growth Status 04/28/25 06:36 Urine - Vides Port Urine Culture - Final Complete 04/27/25 07:50 Stool Clostridium difficile Toxin Assay - Final Complete Labs and/or images reviewed: Labs reviewed by me, Image(s) reviewed by me Problem List/Assessment/Plan Problem List/Assessment/Plan acute cystitis with hematuria acute metabolic enceph due to hypoxia deconditioning sevvere PCM (albumin 2.7) significant weigh tloss weakness due to decontiioning and faliure to thrive dementia decreased PO intake acute hypoxic reps failure continue with current tx Plan discussed with: Patient My Orders My Orders Orders - SAMARA QURESHI DO Procedure Category Date Status Time Urine Bacterial CHRISTINE 04/30/25 Uncollected Culture 18:24 Dietary Evaluation Review Comments: Tube feeding Glucerna @50ml/hr providing 72g protein 1440kcal meeting 1005 of Pt's protein andd energy needs Expected Outcomes/Goals: imroved appetite, gradully improved nutrition related lab value and physcial strngth. SAMARA QURESHI DO May 01, 2025 13:22
--- NOTE | 2025-05-01 15:18 | DVHPN2 ---
Progress Note Date Seen: May 01, 2025 Resident Creating Document: STEFANO ARSHAD RESIDENT Medical Necessity Reason Pt with a Central, PICC or Fol: No Subjective Review of Systems Patient is able to tolerate soft diet, she is eating half of the tray Objective vital signs Vital Sign Date Time Temp Pulse Resp B/P (MAP) Pulse Ox O2 Delivery O2 Flow Rate FiO2 05/01/25 08:30 98.0 76 18 115/76 (89) 97 98.0 05/01/25 08:05 Room Air* 0 21 Total Intake and Output 04/30/25 04/30/25 05/01/25 15:00 23:00 07:00 Intake Total 200 ml 50 ml Balance 200 ml 50 ml medications Current Medications Medications Dose Ordered Sig/Brianne Route Start Time Stop Time Status Last Admin Dose Admin Sodium Chloride 1,000 ml @ 60 mls/hr [id number] IV 04/25/25 17:30 05/01/25 06:46 60 MLS/HR Acetaminophen/ Hydrocodone Bitart 1 tab Q4HP PRN PO 04/25/25 17:30 04/30/25 01:17 1 TAB Acetaminophen 650 mg Q6HP PRN PO 04/25/25 17:30 Nitroglycerin 0.4 mg Q5MINP PRN SL 04/25/25 17:30 Morphine Sulfate 2 mg Q30M PRN IV 04/25/25 17:30 Morphine Sulfate 2 mg Q4HPRN PRN IV 04/26/25 08:45 05/01/25 02:29 2 MG Enteral Nutritional Formula 240 ml TIDWM PO 04/26/25 18:00 05/01/25 07:34 240 ML Saccharomyces Boulardii 250 mg DAILY PO 04/27/25 12:00 04/29/25 10:01 250 MG Diagnostic Test (Pha) 1 strip ACHS 04/27/25 17:00 05/01/25 10:27 1 STRIP Insulin Human Regular HS SC 04/27/25 22:00 04/28/25 22:00 2 UNITS Insulin Human Regular AC SC 04/27/25 17:00 05/01/25 10:41 2 UNITS Dextrose 50 ml UD PRN IV 04/27/25 14:45 Levofloxacin 50 ml @ 50 mls/hr HS IV 04/28/25 22:00 04/30/25 23:41 50 MLS/HR Metronidazole 100 ml @ 100 mls/hr Q8HR IV 04/28/25 22:00 05/01/25 14:00 100 MLS/HR Pantoprazole Sodium 40 mg DAILY IV 05/01/25 10:00 05/01/25 10:26 40 MG Examination Patient lying in bed, in no acute distress General: Well-built, afebrile, palor, mucosae are moist Cardiovascular: Regular S1 and S2. No murmurs, gallops or rubs. No JVD elevation. No pedal edema Respiratory: Normal B/L air entry on room air. Clear lung sounds on auscultation Abdomen: Soft, nontender, nondistended, normoactive bowel sounds, no rebound tenderness, no organomegaly, no masses laboratory and microbiology Laboratory Tests 05/01/25 05:40 04/27/25 23:45 Test 04/27/25 23:45 Range/Units Serum Glucose 144 H 74-106 mg/dL Microbiology Date/Time Source Procedure Growth Status 04/28/25 06:36 Urine - Vides Port Urine Culture - Final Complete 04/27/25 07:50 Stool Clostridium difficile Toxin Assay - Final Complete Problem List/Assessment/Plan Problem List/Assessment/Plan Peg tube placement Failure to thrive Possible UTI Anemia likely normocytic Hypokalemia Vascular dementia Plan: Recommendation: Dr. Mitchell Discussed with her daughter at bedside, patient is eating more now, DC planning is going, no need of peg tube at the moment per hospitalist Patient and family can continue f/u with [facility] on the clinic if peg tube is needed Case discussed with Dr. Mitchell Plan discussed with: Patient, Other (rn) My Orders My Orders Orders - STEFANO ARSHAD Procedure Category Date Status Time Pantoprazole PHA 05/01/25 In Process (Protonix) 10:00 Dietary Evaluation Review Comments: Tube feeding Glucerna @50ml/hr providing 72g protein 1440kcal meeting 1005 of Pt's protein andd energy needs Expected Outcomes/Goals: imroved appetite, gradully improved nutrition related lab value and physcial strngth. STEFANO ARSHAD RESIDENT May 01, 2025 15:18
[2025-05-01 16:30] VITALS: BP 118/75; PULSE 76; RESP 18; TEMP 98; O2SAT 96
[2025-05-01 20:00] VITALS: PULSE 66; RESP 17
[2025-05-01 21:00] VITALS: BP 116/56; PULSE 84; RESP 17; TEMP 98.1; O2SAT 94
[2025-05-02 01:00] VITALS: BP 91/51; PULSE 77; RESP 17; TEMP 98.2; O2SAT 93
[2025-05-02 05:00] VITALS: BP 141/74; PULSE 76; RESP 17; TEMP 97.6; O2SAT 94
[2025-05-02] MEDS: HYDROmorphone HCL 2 MG/ML VL/or syr IV PRN (05:33)
[2025-05-02 06:47] LABS: Hematocrit 32.6 % (36.0-46.0); Hemoglobin 10.9 g/dL (12.2-16.2); Mean Corpuscular Hemoglobin 27.6 pg (28.0-32.0); Mean Corpuscular Volume 82.2 fL (80.0-100.0); Nucleated Red Blood Cells % 0.2 %
[2025-05-02 07:01] LABS: INR 1.08 (0.9-1.15); Partial Thromboplastin Time 22.5 SEC (24.5-34.5); Prothrombin Time 11.4 sec (9.3-11.8)
[2025-05-02 09:00] VITALS: BP_SYST 142; BP_DIAS 63; BP_DIAS 67; PULSE 63; PULSE 76; RESP 18; RESP 22; TEMP 97.4; TEMP 97.9; O2SAT 97; O2SAT 98
--- NOTE | 2025-05-02 10:52 | DVHPN2 ---
Progress Note Date Seen: May 02, 2025 Resident Creating Document: STEFANO ARSHAD RESIDENT Medical Necessity Reason Pt with a Central, PICC or Fol: No Subjective Review of Systems Patient tolerated diet yesterday today she did not eat much no acute complaints Objective vital signs Vital Sign Date Time Temp Pulse Resp B/P (MAP) Pulse Ox O2 Delivery O2 Flow Rate FiO2 05/02/25 09:00 97.4 76 18 142/67 (92) 98 97.4 05/02/25 08:00 Room Air* 0 21 Total Intake and Output 05/01/25 05/01/25 05/02/25 14:59 22:59 06:59 Intake Total 120 ml 950 ml Balance 120 ml 950 ml medications Current Medications Medications Dose Ordered Sig/Brianne Route Start Time Stop Time Status Last Admin Dose Admin Sodium Chloride 1,000 ml @ 60 mls/hr [id number] IV 04/25/25 17:30 05/01/25 06:46 60 MLS/HR Acetaminophen/ Hydrocodone Bitart 1 tab Q4HP PRN PO 04/25/25 17:30 05/01/25 22:15 1 TAB Acetaminophen 650 mg Q6HP PRN PO 04/25/25 17:30 Nitroglycerin 0.4 mg Q5MINP PRN SL 04/25/25 17:30 Morphine Sulfate 2 mg Q30M PRN IV 04/25/25 17:30 Morphine Sulfate 2 mg Q4HPRN PRN IV 04/26/25 08:45 05/01/25 23:22 2 MG Enteral Nutritional Formula 240 ml TIDWM PO 04/26/25 18:00 05/02/25 08:00 240 ML Saccharomyces Boulardii 250 mg DAILY PO 04/27/25 12:00 04/29/25 10:01 250 MG Diagnostic Test (Pha) 1 strip ACHS 04/27/25 17:00 05/02/25 10:27 1 STRIP Insulin Human Regular HS SC 04/27/25 22:00 04/28/25 22:00 2 UNITS Insulin Human Regular AC SC 04/27/25 17:00 05/01/25 17:00 2 UNITS Dextrose 50 ml UD PRN IV 04/27/25 14:45 Levofloxacin 50 ml @ 50 mls/hr HS IV 04/28/25 22:00 05/01/25 23:23 50 MLS/HR Metronidazole 100 ml @ 100 mls/hr Q8HR IV 04/28/25 22:00 05/02/25 06:02 100 MLS/HR Pantoprazole Sodium 40 mg DAILY IV 05/01/25 10:00 05/02/25 09:35 40 MG Hydromorphone HCl 0.5 mg Q4HPRN PRN IV 05/02/25 00:45 05/02/25 05:33 0.5 MG Examination Patient lying in bed, in no acute distress General: Well-built, afebrile, palor, mucosae are moist Cardiovascular: Regular S1 and S2. No murmurs, gallops or rubs. No JVD elevation. No pedal edema Respiratory: Normal B/L air entry on room air. Clear lung sounds on auscultation Abdomen: Soft, nontender, nondistended, normoactive bowel sounds, no rebound tenderness, no organomegaly, no masses laboratory and microbiology Laboratory Tests 05/02/25 06:19 04/27/25 23:45 Test 04/27/25 23:45 Range/Units Serum Glucose 144 H 74-106 mg/dL Microbiology Date/Time Source Procedure Growth Status 04/28/25 06:36 Urine - Vides Port Urine Culture - Final Complete 04/27/25 07:50 Stool Clostridium difficile Toxin Assay - Final Complete Problem List/Assessment/Plan Problem List/Assessment/Plan Peg tube placement Failure to thrive Possible UTI Anemia likely normocytic Hypokalemia Vascular dementia Plan: Discussed with her grandson at bedside, patient is eating more now, DC planning is going, no need of peg tube at the moment per hospitalist Patient and family can continue f/u with [facility] on the clinic if peg tube is needed Case discussed with Dr. Mitchell Plan discussed with: Patient, Other (rn) Dietary Evaluation Review Comments: Tube feeding Glucerna @50ml/hr providing 72g protein 1440kcal meeting 1005 of Pt's protein andd energy needs Expected Outcomes/Goals: imroved appetite, gradully improved nutrition related lab value and physcial strngth. STEFANO ARSHAD RESIDENT May 02, 2025 10:52
[2025-05-02 12:51] VITALS: BP 125/72; PULSE 72; RESP 18; TEMP 97.3; O2SAT 91
[2025-05-02 13:32] VITALS: BP 125/72; PULSE 72; RESP 18
--- NOTE | 2025-05-20 14:17 | DVHPN2 ---
Progress Note Date Seen: May 02, 2025 Medical Necessity Reason Pt with a Central, PICC or Fol: No Objective Examination: GENERAL:Normal, HEENT:Normal, NECK:Normal, LUNGS:Normal laboratory and microbiology Laboratory Tests 05/02/25 06:19 04/27/25 23:45 Test 04/27/25 23:45 Range/Units Serum Glucose 144 H 74-106 mg/dL Microbiology Date/Time Source Procedure Growth Status 04/28/25 06:36 Urine - Vides Port Urine Culture - Final Complete 04/27/25 07:50 Stool Clostridium difficile Toxin Assay - Final Complete Labs and/or images reviewed: Labs reviewed by me, Image(s) reviewed by me Problem List/Assessment/Plan Problem List/Assessment/Plan acute cystitis with hematuria acute metabolic enceph due to hypoxia deconditioning sevvere PCM (albumin 2.7) significant weigh tloss weakness due to decontiioning and faliure to thrive dementia decreased PO intake acute hypoxic reps failure continue with current tx Plan discussed with: Patient Dietary Evaluation Review Comments: Tube feeding Glucerna @50ml/hr providing 72g protein 1440kcal meeting 1005 of Pt's protein andd energy needs Expected Outcomes/Goals: imroved appetite, gradully improved nutrition related lab value and physcial strngth. SAMARA QURESHI DO May 20, 2025 14:17
== END 2025-05-02 15:45 | DRG 640 ==
LOC: EDBD 16:39 → ER 16:39 → OVERFLOW 17:20 → WEST WING 21:50 → CENTRAL 04-30 23:04
PROVIDERS: ADMIT Internal Medicine; ATTEND Internal Medicine
DX: R62.7 Adult failure to thrive (principal); E43 Unspecified severe protein-calorie malnutrition; G93.41 Metabolic encephalopathy; J96.01 Acute respiratory failure with hypoxia; D64.9 Anemia, unspecified; E11.9 Type 2 diabetes mellitus without complications; E87.6 Hypokalemia; N30.01 Acute cystitis with hematuria; F01.50 Vascular dementia, unspecified severity, without behavioral disturbance, psychotic disturbance, mood disturbance, and anxiety; I10 Essential (primary) hypertension; Z68.23 Body mass index [BMI] 23.0-23.9, adult; Z86.73 Personal history of transient ischemic attack (TIA), and cerebral infarction without residual deficits; Z87.11 Personal history of peptic ulcer disease; Z88.0 Allergy status to penicillin
CPT/HCPCS: 36415; 80048; 80053; 81001; 82962; 85025; 85048; 85610; 85730; 87086; 87088; 87186; 87493; 96360; G0378; J1815; J1956; J2470; J3490